=== PATIENT | female | born 1935 | race Caucasian/White ===

== ENCOUNTER → 2020-05-27 11:57 | Outpatient (BNVA) | payer MEDICARE, SELFPAY | PROVIDERS: Visit Provider Family Medicine | DX: N30.01 Acute cystitis with hematuria (principal) | CPT/HCPCS: 81003 ==

== ENCOUNTER 2020-07-25 11:17 | Emergency (ER) | payer MEDICARE, SELFPAY ==
--- NOTE | 2020-07-25 11:18 | CT_ITS ---
WS: [id number] CT HEAD TECHNIQUE: Noncontrast CT of the head obtained from the skullbase to the vertex. CLINICAL INFORMATION: head injury COMPARISON: None. DLP: 807.[address] scans at [facility] use at least one of these dose optimization techniques: automat ed exposure control; mA and/or kV adjustment per patient size (includes targeted exams where dose is matched to clinical indication); or iterative reconstruction. FINDINGS: No evidence of intracranial hemorrhage or mass effect. Ventricular system and basal cisterns are almaraz nt. Mild small vessel changes with mild parenchymal volume loss. No extra-axial fluid collections. No evidence of mass or mass effect. Normal mercado-white differentiation. Dystrophic calcification along t he falx. Paranasal sinuses and mastoid air cells are well aerated. Mild mucosal thickening right mastoid tip. . Soft tissue edema dorsal right scalp. No visualized fractures. CT/CT head wo con* [id number] IMPRESSION: 1. No evidence of intracranial hemorrhage or mass effect. 2. Soft tissue edema dorsal scalp. No acute fractures. 3. Mild small vessel changes with mild parenchymal volume loss. 4. No acute intracranial findings.
[2020-07-25 11:53] VITALS: BP 99/64; PULSE 87; RESP 14; TEMP 36.7; O2SAT 96; BMI 18.3
--- NOTE | 2020-07-25 12:33 | XRR_ITS ---
PROCEDURE INFORMATION: Exam: XR Chest, 1 View Exam date and time: 07/25/2020 12:40 PM Age: 85 years old Clinical indication: Cough and dyspnea and shortness of breath; Additional info: Dyspnea/cough TECHNIQUE: Imaging protocol: XR of the chest Views: 1 view. COMPARISON: No relevant prior studies available. FINDINGS: Lungs: No acute pneumonia or edema. Pleural spaces: There are small bilateral pleural effusions. No pneumothorax. Heart/Mediastinum: Unremarkable. No cardiomegaly. Bones/joints: Unremarkable. XR/XR chest 1V portable [id number] IMPRESSION: There are small bilateral pleural effusions.
--- NOTE | 2020-07-25 12:34 | ECG_ITS ---
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1935 Requested By: Dae Bellamy Order Number: [id number] Reading MD: ALLISON NASH Measurements Intervals [place] Rate: 67 P: [place]: QRS: 77 QRSD: 93 T: 52 QT: 407 QTc: 431 Interpretive Statements ATRIAL FIBRILLATION NONSPECIFIC ST & T-WAVE ABNORMALITY ABNORMAL RHYTHM ECG Compared to ECG 07/25/2020 12:52:48 No significant changes Electronically Signed On 07-25-2020 19:29:08 [employer] by ALLISON NASH [email or web address] Groupmonroe regional hospitalAllDigitalmetrohealth [facility].Tattva/store/NU/[email or web address]/[id number] f
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
[2020-07-25 13:19] LABS: ABG PCO2 44.3 mmHg (35-45); Alveolar-Arterial Oxygen Gradi 4.3 mmHg (5-10); Arterial Blood Gas Hematocrit 33.8 % (37-47); Base Excess ABG 18.3 mmol/L (-2.0-2.0); Blood Gas Allen Test Pos; Blood Gas Sample Site Radial, left; Blood Gas Sample Type Arterial; Carboxyhemoglobin 1.3 %THgb (0.4-20.1); HCO3 ABG 42.1 mmol/L (22-26); HGB O2 Sat 93.3 % (95-100); Ionized Calcium Level - ABG 1.1 mmol/L (1.1-1.4); Methemoglobin 0.2 % (0.4-1.5); Oxygen Device ROOM AIR; Oxygen Saturation ABG 94.8; PO2 ABG 62.2 mmHg (80.0-100.0); Potassium Level - ABG 2.3 mmol/L (3.5-5.0)
[2020-07-25 13:26] VITALS: BP 97/60; PULSE 77; RESP 21; O2SAT 91
[2020-07-25 14:15] LABS: Basophils % 0.2 %; Eosinophils % 0.4 %; Hemoglobin 9.1 g/dL (11.5-15.3); Lymphocytes # 1.5 10^3/uL (0.8-4.8); Lymphocytes % 18.4 %; Mean Corpuscular HGB Conc 32.5 g/dL (30.0-36.0); Mean Corpuscular Hemoglobin 29.6 pg (28.0-34.0); Mean Corpuscular Volume 91.2 fL (81-99); Monocytes # 0.7 10^3/uL (0.2-0.9); Monocytes % 7.8 %; Neutrophils % 73.1 %; Nucleated Red Blood Cells % 0 %; Platelet Count 226 10^3/cmm (130-400); Red Blood Count 3.07 10^6/uL (4.1-5.3); Red Cell Distribution Width 15.6 % (12.1-15.1); White Blood Count 8.4 10^3/uL (4.0-10.0)
[2020-07-25 14:18] VITALS: BP 115/71; PULSE 75; RESP 18; O2SAT 91
[2020-07-25 14:19] LABS: Bilirubin Urine Neg (Negative); Blood Urine 3+ (Negative); Glucose Urine UA Norm (Normal); Ketones Urine Negative (Negative); Nitrate Urine Negative (Negative); Protein Urine Trace (Negative); Specific Gravity, Urine 1.015 (1.005-1.030); Urine Appearance SL Hazy (CLEAR); Urine Color Yellow (Yellow); pH Urine 5 (5-7)
[2020-07-25 14:20] LABS: Add Urine Culture? No; Add Urine Microscopic? YES; Bacteria Urine 1+ /hpf; Leukocyte Esterase Urine Negative (Negative); Transitional Epi Cells Urine 0-4 /hpf; Urobilinogen Urine Norm (Negative); WBC Urine 0-4 /hpf (0-5)
--- NOTE | 2020-07-25 14:26 | CT_ITS ---
WS: [id number] CT ABDOMEN AND PELVIS NONCONTRAST HISTORY: flank pain TECHNIQUE: Imaging performed through the abdomen and pelvis. Coronal and sagittal reformats are submi tted. All CT scans at [facility] use at least one of these dose optimization techniques: automated exposure control; mA and/or kV adjustment per patient size (includes targeted exams where d ose is matched to clinical indication); or iterative reconstruction. DLP: 521.38 mGy.cm COMPARISON: None available. Lower thorax: Small bilateral simple pleural effusions. Mild compressive atelectasis at the lung base s. Mild atherosclerosis in the distal thoracic aorta. Heart size is slightly enlarged. Liver: Normal size liver. No mass or bile duct dilatation. Gallbladder: Gallbladder is slightly contracted. Pancreas: Marked atrophy of the pancreas. Cystic nodule in the pancreatic body measures 7 mm. Spleen: Normal. Adrenal glands: Mild hyperplasia LEFT adrenal gland. RIGHT is negative. Right kidney: Mild perinephric stranding. No obstruction. Left kidney: Parapelvic cyst upper pole. No hydronephrosis or obstruction. Aorta: Moderate to severe atherosclerosis abdominal aorta. No aneurysm. Atherosclerosis continues int o the common iliac arteries. Diffuse moderate mesenteric edema. There is a small amount of free fluid present within the peritonea l cavity. GI tract: Diffuse constipation. No obstructive pattern. Abdominal wall: Negative. No hernia. Pelvis: Urinary bladder is well distended. Small amount of air in urinary bladder may be from a recen t catheterization. Small amount of free fluid in the pelvis. Uterus is atrophic as expected. Osseous structures: L3 retrolisthesis by [address]/CT kidney stone [id number] IMPRESSION: 1. Small bilateral pleural effusions. 2. Small amount of ascites with soft tissue anasarca. 3. Atherosclerosis aorta. 4. Indeterminate cystic mass in the pancreatic body measures 7 mm. IPMN versu s pancreatic cystic nodule. 5. No renal obstruction or calcifications identified.
--- NOTE | 2020-07-25 14:34 | ECG_ITS ---
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
[2020-07-25 14:46] LABS: Alanine Aminotransferase 8 U/L (0-33); Alkaline Phosphatase 62 IU/L (35-105); Anion Gap 11.6 (5-19); Aspartate Amino Transferase 14 U/L (0-32); Blood Urea Nitrogen 33 mg/dL (8-23); Calcium 7.9 mg/dL (8.5-10.5); Carbon Dioxide 39 mmol/L (22-29); Chloride 85 mmol/L (98-107); Creatine Phosphokinase 21 U/L (26-192); Globulin 2.9 g/dL (1.3-4.6); Glucose 103 mg/dL (65-115); Lipase 98 U/L (13-60); Osmolality Calculated 284 mOsm/kg (285-295); Sodium 133 mmol/L (136-145); Total Bilirubin 0.4 mg/dL (0.15-1.2); Total Protein 5.9 g/dL (6.6-8.7); Troponin(5th) Baseline 44 ng/L (0-10)
[2020-07-25 14:47] LABS: Lactic Sepsis W/Reflex 1.3 mmol/L (0.5-2.2)
[2020-07-25 14:50] LABS: Potassium 2.6 mmol/L (3.5-5.1)
[2020-07-25] MEDS: potassium chloride oral liq 20 mEq/15 mL UDC 40 MEQ PO (16:07)
[2020-07-25 16:31] VITALS: BP 114/68; PULSE 84; RESP 15; O2SAT 96
[2020-07-25 16:52] LABS: Troponin 5 2HR 41.61 ng/L (0-10)
[2020-07-25 16:54] LABS: Troponin 5 2HR Delta -2.39 ABS# (0-10)
[2020-07-30 14:03] LABS: ABG PH Result 7.59 (7.35-7.45)
== END 2020-07-25 16:31 | disposition home or self-care (01) ==
PROVIDERS: Emergency Provider Family Medicine; PCP Family Medicine
DX: D64.9 Anemia, unspecified (principal); E87.6 Hypokalemia
CPT/HCPCS: 12345; 36415; 36600; 70450; 71045; 74176; 80051; 80053; 81001; 82330; 82550; 82805; 83605; 83690; 84484; 85025; 93005; 99282; 99283

== ENCOUNTER 2020-08-10 19:55 | Emergency (ER) | payer MEDICARE, SELFPAY ==
[2020-08-10] VITALS (7 sets, daily range): BP systolic 109–137; BP diastolic 62–99; PULSE 96–107; RESP 14–21; TEMP 36.7–36.8; O2SAT 96–99; BMI 18.3
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
[2020-08-10 20:35] LABS: Basophils % 0.4 %; Eosinophils # 0.1 10^3/uL (0.0-0.8); Hematocrit 24.7 % (37.0-47.0); Hemoglobin 7.8 g/dL (11.5-15.3); Lymphocytes # 1.6 10^3/uL (0.8-4.8); Lymphocytes % 16.2 %; Mean Corpuscular HGB Conc 31.6 g/dL (30.0-36.0); Mean Corpuscular Hemoglobin 30.1 pg (28.0-34.0); Mean Corpuscular Volume 95.4 fL (81-99); Monocytes # 0.7 10^3/uL (0.2-0.9); Monocytes % 7.4 %; Neutrophils # 7.32 10^3/uL (1.8-7.7); Neutrophils % 74.7 %; Nucleated Red Blood Cells % 0 %; Platelet Count 299 10^3/cmm (130-400); Red Blood Count 2.59 10^6/uL (4.1-5.3); White Blood Count 9.8 10^3/uL (4.0-10.0)
[2020-08-10 20:49] LABS: INR 0.98 (0.8-1.2)
--- NOTE | 2020-08-10 21:08 | ECG_ITS ---
[facility] Test Date: 2020-08-10 Pat Name: Marianne Collins Department: Room: Gender: Female Boiler Operator: : 1935 Requested By: Ree Sorto Order Number: [id number] Krystyna MD: Magdy Aiken M.D. Measurements Intervals [place] Rate: 98 P: 93 TN: 204 QRS: 78 QRSD: 85 T: 61 QT: 337 QTc: 431 Interpretive Statements SINUS RHYTHM WITH OCCASIONAL SUPRAVENTRICULAR PREMATURE COMPLEXES Compared to ECG 07/25/2020 14:51:57 Atrial fibrillation no longer present T-wave abnormality no longer present Electronically Signed On 08-11-2020 20:01:25 ELECTRICAL PROSPECTING OPERATOR by Magdy Aiekn M.D. [id number]
[2020-08-10 21:16] LABS: Anion Gap 10.6 (5-19); Blood Urea Nitrogen 20 mg/dL (8-23); Calcium 7.9 mg/dL (8.5-10.5); Carbon Dioxide 27 mmol/L (22-29); Chloride 98 mmol/L (98-107); Glucose 101 mg/dL (65-115); Osmolality Calculated 277 mOsm/kg (285-295); Potassium 3.6 mmol/L (3.5-5.1); Sodium 132 mmol/L (136-145)
[2020-08-11] VITALS: BP 112/67; PULSE 94; RESP 21; O2SAT 96
[2020-08-11 00:37] VITALS: BP 112/67; PULSE 96; RESP 22; TEMP 36.8; O2SAT 97
[2020-08-11 01:00] VITALS: BP 107/61; PULSE 96; RESP 12; O2SAT 97
[2020-08-11 01:34] VITALS: BP 122/72; PULSE 18; RESP 93; TEMP 36.8; O2SAT 96
== END 2020-08-11 01:34 | disposition home or self-care (01) ==
PROVIDERS: Emergency Provider Emergency Medicine; PCP Family Medicine
DX: D64.9 Anemia, unspecified (principal)
CPT/HCPCS: 36415; 36430; 80048; 85025; 85610; 86850; 86900; 86920; 93005; 99284; P9016

== ENCOUNTER 2020-09-04 12:23 | Emergency (ER) | payer MEDICARE, SELFPAY ==
[2020-09-04 12:23] VITALS: BP 159/82; PULSE 64; RESP 24; TEMP 36.6; BMI 23.3
--- NOTE | 2020-09-04 12:32 | CTR_ITS ---
PROCEDURE INFORMATION: Exam: CT Lumbar Spine Without Contrast Exam date and time: 09/04/2020 12:43 PM Age: 85 years old Clinical indication: Injury or trauma; Fall; Blunt trauma (contusions or hematomas); Additional info: Fall, polytrauma TECHNIQUE: Imaging protocol: Computed tomography images of the lumbar spine without contrast. Radiation optimization: All CT scans at this facility use at least one of these dose optimization techniques: automated exposure control; mA and/or kV adjustment per patient size (includes targeted exams where dose is matched to clinical indication); or iterative reconstruction. COMPARISON: No relevant prior studies available. RADIATION DOSE METRICS: Total DLP (mGy-cm): 1615.16 FINDINGS: Vertebrae: There is a mild lateral curvature of the lumbar spine with the convexity to the right. There are degenerative changes throughout the visualized spine including marginal osteophyte formations, endplate degenerative changes, and facet arthropathy. Minimal grade 1 retrolisthesis of L3 on L4. L1-L2: No significant disc protrusion. No severe spinal canal stenosis. No significant neural foraminal narrowing. L2-L3: No significant disc protrusion. No spinal canal stenosis. No neural foraminal narrowing. L3-L4: No significant disc protrusion. No severe spinal canal stenosis. No significant neural foraminal narrowing. L4-L5: There is a disc bulge and ligamentum flavum hypertrophy contributing to mild to moderate canal stenosis. There is moderate narrowing of the right neural foramen and mild narrowing of the left neural foramen. L5-S1: There is a disc bulge and posterior osteophytes. No significant canal or neural foramina stenosis. Lungs: There are bilateral pleural effusions with adjacent atelectasis and or pneumonia. Intraperitoneal space: There is free fluid in the visualized abdomen surrounding the liver and along the right paracolic gutter. Vasculature: There is scattered calcified plaque in the aorta and iliac arteries. Soft tissues: Unremarkable. Other findings: Multilevel disc space narrowing. CT/CT lumbar spine wo con* [id number] IMPRESSION: 1. There are degenerative changes in the lumbar spine as described above. No evidence for acute fracture. 2. There is free fluid in the visualized abdomen/pelvis. This could be more optimally evaluated by CT scan abdomen/pelvis if not already performed. 3. Bilateral pleural effusions with adjacent compressive atelectasis or pneumonia. Radiation Dose CTDIVOL = (mGy): DLP = 1615.16 (mGy-cm)
--- NOTE | 2020-09-04 12:32 | CTR_ITS ---
PROCEDURE INFORMATION: Exam: CT Thoracic Spine Without Contrast Exam date and time: 09/04/2020 12:43 PM Age: 85 years old Clinical indication: Injury or trauma; Fall; Blunt trauma (contusions or hematomas); Additional info: Fall poly trauma TECHNIQUE: Imaging protocol: Computed tomography images of the thoracic spine without contrast. Radiation optimization: All CT scans at this facility use at least one of these dose optimization techniques: automated exposure control; mA and/or kV adjustment per patient size (includes targeted exams where dose is matched to clinical indication); or iterative reconstruction. COMPARISON: No relevant prior studies available. RADIATION DOSE METRICS: Total DLP (mGy-cm): 854.95 FINDINGS: Vertebrae: There are minimal thoracic scoliotic curvatures with a levoscoliosis of the upper thoracic spine in a dextroscoliosis of the midthoracic spine. There is a mild anterior compression deformity of the T1 superior endplate which has a chronic appearance. No associated soft tissue changes are seen. Discs/Spinal canal/Neural foramina: There are degenerative changes throughout the visualized spine including marginal osteophyte formations, degenerative Schmorl's nodes, and facet arthropathy. Multilevel disc space narrowing. Soft tissues: See Vertebrae finding. Lungs: Bilateral pulmonary ground-glass opacities. There are large bilateral pleural effusions.Multivessel atherosclerotic disease which involves the coronary arteries. CT/CT thoracic spin wo con* [id number] IMPRESSION: 1. There is a mild anterior compression deformity of the T1 superior endplate which has a chronic appearance. 2. There are degenerative changes in the visualized spine as described above. No evidence for acute fracture. 3. Bilateral pulmonary ground-glass opacities are nonspecific and can be seen with pulmonary edema, pneumonitis, and or pneumonia. There are bilateral pleural effusions. Radiation Dose CTDIVOL = (mGy): DLP = 854.95 (mGy-cm)
--- NOTE | 2020-09-04 12:32 | CTR_ITS ---
PROCEDURE INFORMATION: Exam: CT Head Without Contrast Exam date and time: 09/04/2020 12:43 PM Age: 85 years old Clinical indication: Injury or trauma; Fall; Blunt trauma (contusions or hematomas); With loss of consciousness; Not specified; Injury date: Today; Additional info: Fall, polytrauma TECHNIQUE: Imaging protocol: Computed tomography of the head without contrast. Radiation optimization: All CT scans at this facility use at least one of these dose optimization techniques: automated exposure control; mA and/or kV adjustment per patient size (includes targeted exams where dose is matched to clinical indication); or iterative reconstruction. COMPARISON: CT head wo con* [id number] 07/25/2020 11:45 AM RADIATION DOSE METRICS: Total DLP (mGy-cm): 1120.52 FINDINGS: Brain: Minimal periventricular and subcortical white matter low densities are present which at this age likely represent microvascular ischemic change. Mild generalized cerebral atrophy, age appropriate. Cerebral ventricles: No ventriculomegaly. Bones/joints: Hyperostosis of the calvarium. Paranasal sinuses: Visualized sinuses are unremarkable. No fluid levels. Mastoid air cells: There is fluid and/or mucosal thickening in several right mastoid air cells. Soft tissues: Unremarkable. CT/CT head wo con* [id number] IMPRESSION: There are senescent changes of the brain as described above. No evidence for large acute ischemic infarction or acute intracranial injury. Radiation Dose CTDIVOL = (mGy): DLP = 1120.52 (mGy-cm)
--- NOTE | 2020-09-04 12:32 | ECG_ITS ---
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 Measurements Intervals [place] Rate: 77 P: 93 CA: 164 QRS: 83 QRSD: 85 T: 74 QT: 387 QTc: 439 Interpretive Statements SINUS RHYTHM Compared to ECG 08/10/2020 21:29:29 No significant changes Electronically Signed On 09-04-2020 20:16:10 CDT by Myranda Muhammad M.D. [id number] f
--- NOTE | 2020-09-04 12:32 | CTR_ITS ---
PROCEDURE INFORMATION: Exam: CT Cervical Spine Without Contrast Exam date and time: 09/04/2020 12:43 PM Age: 85 years old Clinical indication: Injury or trauma; Fall; Blunt trauma; Injury date: Today; Additional info: Fall, polytrauma TECHNIQUE: Imaging protocol: Computed tomography images of the cervical spine without contrast. Radiation optimization: All CT scans at this facility use at least one of these dose optimization techniques: automated exposure control; mA and/or kV adjustment per patient size (includes targeted exams where dose is matched to clinical indication); or iterative reconstruction. COMPARISON: No relevant prior studies available. RADIATION DOSE METRICS: Total DLP (mGy-cm): 309.37 FINDINGS: Bones/joints: There is a mild anterior compression deformity of the T1 superior endplate which has a chronic appearance. There are no associated soft tissue changes. Discs/Spinal canal/Neural foramina: There are degenerative changes throughout the visualized spine including marginal osteophyte formations, endplate degenerative changes, and facet arthropathy. Multilevel disc space narrowing. There are multilevel broad-based disc osteophyte complexes which indent the anterior thecal sac and result in varying degrees of bilateral neuroforamina narrowing. A Mastoid air cells: There is fluid and/or mucosal thickening in several right mastoid air cells. Lungs: There are ground-glass opacities at the lung apices and bilateral pleural effusions. Soft tissues: There are benign-appearing soft tissue calcifications. CT/CT cervical spin wo con* [id number] IMPRESSION: 1. There is a mild anterior compression deformity of the T1 superior endplate which has a chronic appearance. No acute fracture is seen. 2. There are degenerative changes in the visualized spine as described above. No evidence for acute fracture. 3. There are ground-glass opacities at the lung apices. This is a nonspecific finding and can be seen with pulmonary edema, pneumonitis, and or pneumonia. 4. Bilateral pleural effusions. Radiation Dose CTDIVOL = (mGy): DLP = 309.37 (mGy-cm)
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
[2020-09-04 13:39] VITALS: BP 144/75; RESP 24; O2SAT 94
[2020-09-04 13:51] LABS: Basophils % 0.3 %; Eosinophils # 0.1 10^3/uL (0.0-0.8); Eosinophils % 0.7 %; Hematocrit 29.3 % (37.0-47.0); Hemoglobin 9.1 g/dL (11.5-15.3); Lymphocytes % 7.4 %; Mean Corpuscular HGB Conc 31.1 g/dL (30.0-36.0); Mean Corpuscular Hemoglobin 31.2 pg (28.0-34.0); Mean Corpuscular Volume 100.3 fL (81-99); Mean Platelet Volume 10.5 fL (7.4-10.4); Monocytes # 0.8 10^3/uL (0.2-0.9); Monocytes % 5.7 %; Neutrophils % 85.4 %; Nucleated Red Blood Cells % 0 %; Platelet Count 371 10^3/cmm (130-400); Red Blood Count 2.92 10^6/uL (4.1-5.3); Red Cell Distribution Width 15.1 % (12.1-15.1); White Blood Count 13.9 10^3/uL (4.0-10.0)
[2020-09-04 14:00] VITALS: BP 142/79; PULSE 72; RESP 16; O2SAT 95
[2020-09-04 14:23] LABS: Alanine Aminotransferase 10 U/L (0-33); Albumin Level 2.6 g/dL (3.5-5.2); Alkaline Phosphatase 85 IU/L (35-105); Anion Gap 16.9 (5-19); Aspartate Amino Transferase 14 U/L (0-32); Blood Urea Nitrogen 32 mg/dL (8-23); Calcium 8.2 mg/dL (8.5-10.5); Carbon Dioxide 22 mmol/L (22-29); Chloride 99 mmol/L (98-107); Glucose 132 mg/dL (65-115); Magnesium 1.8 mg/dL (1.7-2.3); Osmolality Calculated 287 mOsm/kg (285-295); Potassium 3.9 mmol/L (3.5-5.1); Sodium 134 mmol/L (136-145); Total Bilirubin 0.2 mg/dL (0.15-1.2); Total Protein 6.6 g/dL (6.6-8.7)
[2020-09-04 14:37] LABS: INR 1.06 (0.8-1.2)
[2020-09-04 15:00] VITALS: BP 146/79; RESP 22; O2SAT 94
[2020-09-04] MEDS: lactated ringers 500 ML 999 ML IV (15:06)
[2020-09-04 17:04] LABS: Urine Appearance Clear (CLEAR); Urine Color Straw (Yellow); pH Urine 5 (5-7)
[2020-09-04 17:05] LABS: Add Urine Microscopic? YES; Bilirubin Urine Neg (Negative); Blood Urine 3+ (Negative); Glucose Urine UA Norm (Normal); Ketones Urine Negative (Negative); Leukocyte Esterase Urine Negative (Negative); Nitrate Urine Negative (Negative); Protein Urine 1+ (Negative); Urobilinogen Urine Norm (Negative)
[2020-09-04 17:06] LABS: Add Urine Culture? Yes; Bacteria Urine TRACE /hpf; Mucus Urine TRACE /hpf; RBC Urine 25-40 /hpf (0-2); Squamous Epithelial Cell Urine RARE /hpf (0-5); WBC Urine 0-4 /hpf (0-5)
[2020-09-04 18:27] VITALS: BP 142/80; PULSE 74; RESP 16; O2SAT 98
[2020-09-04 18:30] VITALS: BP 142/80; PULSE 74; RESP 16; O2SAT 98
== END 2020-09-04 18:30 | disposition home or self-care (01) ==
PROVIDERS: Emergency Provider Family Medicine; PCP Family Medicine
DX: S00.03XA Contusion of scalp, initial encounter (principal); S06.0X0A Concussion without loss of consciousness, initial encounter; N17.9 Acute kidney failure, unspecified; W19.XXXA Unspecified fall, initial encounter; Z79.899 Other long term (current) drug therapy
CPT/HCPCS: 36415; 70450; 72125; 72128; 72131; 80053; 81001; 83735; 85025; 85610; 87086; 93005; 99284; 99291

== ENCOUNTER 2020-09-05 14:07 | Inpatient (IN) | payer MEDICARE, SELFPAY ==
[2020-09-05] VITALS (12 sets, daily range): BP systolic 109–142; BP diastolic 60–80; PULSE 73–98; RESP 12–24; TEMP 36.4–36.5; O2SAT 91–94
--- NOTE | 2020-09-05 14:17 | XR_ITS ---
WS: [id number] PORTABLE CHEST HISTORY: altered mental status COMPARISON: 07/25/2020 Lung volumes are decreased. Haziness and mild pulmonary edema. Small bilateral pleural effusions have slightly increased in size since 07/25/2020. Increasing compressive atelectasis at the lung bases. Cardiac size: Mildly enlarged cardiac silhouette. Mediastinum/Aorta: Mild atherosclerosis aorta. No osseous abnormality seen. XR/XR chest 1V portable [id number] IMPRESSION: 1. Development of mild pulmonary edema. 2. Increasing but small bilateral pleural effusions and compressive atelectasi s.
--- NOTE | 2020-09-05 14:21 | ECG_ITS ---
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 Measurements Intervals [place] Rate: 94 P: [place]: QRS: 64 QRSD: 83 T: 38 QT: 362 QTc: 455 Interpretive Statements Possible atrial fibrillation. Because of the heavy artifact, the study need to be repeated LOW QRS VOLTAGE IN PRECORDIAL LEADS [QRS DEFLECTION < 1.0 mV IN CHEST LEADS] MODERATE ST DEPRESSION [0.05+ mV ST DEPRESSION] Compared to ECG 09/04/2020 13:29:52 Low QRS voltage now present ST (T wave) deviation now present Sinus rhythm no longer present Electronically Signed On 09-06-2020 20:13:54 CDT by Magdy Aiken M.D. [id number]
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
[2020-09-05 15:00] LABS: Glucose Point of Care 197 mg/dL (70-110)
[2020-09-05 15:01] LABS: Basophils % 0.2 %; Eosinophils # 0.1 10^3/uL (0.0-0.8); Eosinophils % 0.5 %; Hematocrit 27.7 % (37.0-47.0); Hemoglobin 8.9 g/dL (11.5-15.3); Lymphocytes # 1.5 10^3/uL (0.8-4.8); Lymphocytes % 11.4 %; Mean Corpuscular HGB Conc 32.1 g/dL (30.0-36.0); Mean Corpuscular Hemoglobin 30.6 pg (28.0-34.0); Mean Corpuscular Volume 95.2 fL (81-99); Mean Platelet Volume 10.7 fL (7.4-10.4); Monocytes # 0.8 10^3/uL (0.2-0.9); Monocytes % 6.1 %; Neutrophils # 10.63 10^3/uL (1.8-7.7); Neutrophils % 81.3 %; Nucleated Red Blood Cells % 0 %; Platelet Count 412 10^3/cmm (130-400); Red Blood Count 2.91 10^6/uL (4.1-5.3); Red Cell Distribution Width 14.9 % (12.1-15.1); White Blood Count 13.1 10^3/uL (4.0-10.0)
[2020-09-05 15:11] LABS: Bilirubin Urine Neg (Negative); Blood Urine 3+ (Negative); Glucose Urine UA Norm (Normal); Ketones Urine Negative (Negative); Nitrate Urine Negative (Negative); Protein Urine Trace (Negative); Specific Gravity, Urine 1.015 (1.005-1.030); Urine Appearance Clear (CLEAR); Urine Color Yellow (Yellow); pH Urine 5 (5-7)
[2020-09-05 15:12] LABS: Add Urine Culture? No; Add Urine Microscopic? YES; Bacteria Urine TRACE /hpf; Leukocyte Esterase Urine Negative (Negative); Urobilinogen Urine Norm (Negative)
[2020-09-05 15:14] LABS: Troponin(5th) Baseline 44 ng/L (0-10)
[2020-09-05 15:23] LABS: Alanine Aminotransferase 9 U/L (0-33); Albumin Level 2.7 g/dL (3.5-5.2); Alkaline Phosphatase 79 IU/L (35-105); Anion Gap 17.8 (5-19); Aspartate Amino Transferase 11 U/L (0-32); Blood Urea Nitrogen 30 mg/dL (8-23); Calcium 8.3 mg/dL (8.5-10.5); Carbon Dioxide 23 mmol/L (22-29); Chloride 100 mmol/L (98-107); Globulin 3.3 g/dL (1.3-4.6); Glucose 190 mg/dL (65-115); NT Pro B Type Natriuretic Pept 16428 pg/mL (0-450); Osmolality Calculated 295 mOsm/kg (285-295); Potassium 3.8 mmol/L (3.5-5.1); Sodium 137 mmol/L (136-145); Total Bilirubin 0.3 mg/dL (0.15-1.2)
--- NOTE | 2020-09-05 16:21 | ECG_ITS ---
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 Measurements Intervals Page Rate: 83 P: 82 ID: [id number] QRS: 63 QRSD: 82 T: 63 QT: 366 QTc: 431 Interpretive Statements SINUS RHYTHM WITH OCCASIONAL SUPRAVENTRICULAR PREMATURE COMPLEXES Compared to ECG 09/05/2020 14:29:23 Atrial fibrillation no longer present ST (T wave) deviation no longer present Electronically Signed On 09-05-2020 19:15:17 CDT by Myranda Muhammad M.D. [id number]
[2020-09-05] MEDS: FUROsemide 10 mg/mL SDV 4mL 40 MG IVP (16:45)
[2020-09-05] MEDS: acetaminophen 325 mg Tablet 650 MG PO (16:46)
--- NOTE | 2020-09-05 16:52 | CTR_ITS ---
PROCEDURE INFORMATION: Exam: CT Head Without Contrast Exam date and time: 09/05/2020 5:20 PM Age: 85 years old Clinical indication: Altered mental status/memory loss; Additional info: AMS TECHNIQUE: Imaging protocol: Computed tomography of the head without contrast. Radiation optimization: All CT scans at this facility use at least one of these dose optimization techniques: automated exposure control; mA and/or kV adjustment per patient size (includes targeted exams where dose is matched to clinical indication); or iterative reconstruction. COMPARISON: CT head wo con* [id number] 09/04/2020 12:58 PM RADIATION DOSE METRICS: Total DLP (mGy-cm): 1044.84 FINDINGS: Brain: No evidence of acute infarct. No mass or mass effect. No intra axial hemorrhage. No extra axial fluid collection or hemorrhage. Scattered white matter hypodensities likely from chronic microvascular ischemic disease. Global brain volume loss, likely age related. Cerebral ventricles: Symmetric and without enlargement. Bones/joints: No acute fracture. Paranasal sinuses: Visualized sinuses are well aerated. Mastoid air cells: Visualized mastoid air cells are well aerated. Soft tissues: No concerning abnormalities. CT/CT head wo con* [id number] IMPRESSION: 1. Positioning mildly limits exam. 2. Given limitation, no acute intracranial abnormality. Radiation Dose CTDIVOL = (mGy): DLP = 1044.84 (mGy-cm)
[2020-09-05 17:04] LABS: Creatine Phosphokinase 15 U/L (26-192)
[2020-09-05 17:08] LABS: Troponin 5 2HR 44.77 ng/L (0-10); Troponin 5 2HR Delta 0.77 ABS# (0-10)
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
--- NOTE | 2020-09-05 20:21 | ECG_ITS ---
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 Measurements Intervals [place] Rate: 70 P: 95 IA: 161 QRS: 59 QRSD: 85 T: 34 QT: 408 QTc: 442 Interpretive Statements SINUS RHYTHM WITH OCCASIONAL SUPRAVENTRICULAR PREMATURE COMPLEXES Compared to ECG 09/05/2020 16:30:25 No significant changes Electronically Signed On 09-09-2020 18:22:53 CDT by Myranda Muhammad M.D. [email or web address] [email or web address]/[id number]
[2020-09-05] MEDS: cefTRIAXone 1,000 MG in sodium chloride 0.9% (plus) 50 ML 100 MG IV (20:52)
[2020-09-05] MEDS: heparin 5,000 unit/mL INJ 1 mL 5000 UNIT SUBCUT (20:52)
[2020-09-05] MEDS: famotidine 20 mg/2 mL INJ IVP (20:57)
[2020-09-05 21:26] LABS: Troponin 5 6HR 53.39 ng/L (0-10); Troponin 5 6HR Delta 9.39 ng/L (0-12)
[2020-09-06] VITALS (12 sets, daily range): BP systolic 102–161; BP diastolic 61–88; PULSE 76–99; RESP 16–18; TEMP 36.4–37.2; O2SAT 89–97
[2020-09-06 06:22] LABS: Basophils % 0.2 %; Eosinophils # 0.2 10^3/uL (0.0-0.8); Eosinophils % 2.2 %; Hematocrit 26.7 % (37.0-47.0); Hemoglobin 8.5 g/dL (11.5-15.3); Lymphocytes # 1.4 10^3/uL (0.8-4.8); Lymphocytes % 12.9 %; Mean Corpuscular HGB Conc 31.8 g/dL (30.0-36.0); Mean Corpuscular Hemoglobin 29.9 pg (28.0-34.0); Mean Platelet Volume 10.8 fL (7.4-10.4); Monocytes # 0.8 10^3/uL (0.2-0.9); Monocytes % 6.8 %; Neutrophils # 8.48 10^3/uL (1.8-7.7); Neutrophils % 77.4 %; Nucleated Red Blood Cells % 0 %; Platelet Count 392 10^3/cmm (130-400); Red Blood Count 2.84 10^6/uL (4.1-5.3); Red Cell Distribution Width 14.8 % (12.1-15.1)
[2020-09-06 06:34] LABS: Ammonia 23 umol/L (11-51)
[2020-09-06 06:49] LABS: Alanine Aminotransferase 8 U/L (0-33); Albumin Level 2.4 g/dL (3.5-5.2); Alkaline Phosphatase 72 IU/L (35-105); Anion Gap 14.1 (5-19); Aspartate Amino Transferase 10 U/L (0-32); Blood Urea Nitrogen 28 mg/dL (8-23); Carbon Dioxide 25 mmol/L (22-29); Chloride 101 mmol/L (98-107); Globulin 3.7 g/dL (1.3-4.6); Glucose 90 mg/dL (65-115); Magnesium 1.7 mg/dL (1.7-2.3); Osmolality Calculated 289 mOsm/kg (285-295); Phosphorus 3.5 mg/dL (2.5-4.5); Potassium 3.1 mmol/L (3.5-5.1); Sodium 137 mmol/L (136-145); Thyroid Stimulating Hormone 5.36 uIU/mL (0.27-4.20); Total Bilirubin 0.3 mg/dL (0.15-1.2); Total Protein 6.1 g/dL (6.6-8.7)
--- NOTE | 2020-09-06 07:33 | PC.NURSE ---
AM ASSESSMENT AM ASSESSMENT PER THIS NURSE - PT PLEASANT AND COOPERATIVE TO ASSESSMENT - ABLE TO STATE NAME ONLY - UNAWARE OF DATE,TIME, PLACE OR SITUATION - SEE WOUND ASSESSMENT FOR HEAD LAC DETAILS AND LEFT LOWER LEG WOUND DETAILS - 1:1 SITTER REMAINS AT SIDE - WILL REVIEW ORDERS, PLAN OF CARE AND MONITOR PT
[2020-09-06] MEDS: heparin 5,000 unit/mL INJ 1 mL 5000 UNIT SUBCUT (08:11)
[2020-09-06] MEDS: famotidine 20 mg/2 mL INJ IVP (08:12)
[2020-09-06] MEDS: ipratropium-albuterol 3 mL Neb INHALATION (08:41)
--- NOTE | 2020-09-06 09:12 | XRR_ITS ---
PROCEDURE INFORMATION: Exam: XR Bilateral Hips Exam date and time: 09/06/2020 9:15 AM Age: 85 years old Clinical indication: Injury or trauma; Fall; Blunt trauma (contusions or hematomas); Bilateral; Hip; Injury date: 09/05/20; Patient HX: PT unable to provide history TECHNIQUE: Imaging protocol: XR bilateral hips. Views: 2 views of hips with pelvis when performed. COMPARISON: CT kidney stone [id number] 07/25/2020 3:47 PM FINDINGS: Bones/joints: Degenerative changes are present in the right hip joint with osteophyte formation on the femoral head and mild joint space narrowing. No significant degenerative changes are seen in the left hip. No fracture or other acute abnormalities are present. Soft tissues: Unremarkable. XR/XR hip BI 3-4V wo/w pel [id number] IMPRESSION: 1. 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 2. Normal left hip.
--- NOTE | 2020-09-06 09:12 | XRR_ITS ---
PROCEDURE INFORMATION: Exam: XR Ribs Exam date and time: 09/06/2020 9:15 AM Age: 85 years old Clinical indication: Injury or trauma; Fall; Rib area, bilateral; Blunt trauma; Injury date: 09/05/20; Patient HX: PT unable to provide history; Additional info: Fall, chest pain TECHNIQUE: Imaging protocol: XR of the ribs. Views: 3 views. Bilateral ribs. COMPARISON: CR XR chest 1V portable [id number] 09/05/2020 2:43 PM FINDINGS: Bones/joints: The ribs are intact with no fracture. Lungs: There are diffuse bilateral interstitial pulmonary infiltrates with bilateral pleural effusions and left basilar atelectasis. These findings may be due to CHF. Soft tissues: Normal. XR/XR ribs BI 3V* [id number] IMPRESSION: 1. No rib abnormality. 2. Findings consistent with CHF.
--- NOTE | 2020-09-06 09:12 | CT_ITS ---
WS: [id number] CT ABDOMEN AND PELVIS NONCONTRAST HISTORY: drop in hgb with fall, r/o internal bleeding TECHNIQUE: Imaging performed through the abdomen and pelvis. Coronal and sagittal reformats are submi tted. All CT scans at [facility] use at least one of these dose optimization techniques: automated exposure control; mA and/or kV adjustment per patient size (includes targeted exams where d ose is matched to clinical indication); or iterative reconstruction. DLP: 927.55 mGy.cm COMPARISON: 07/25/2020 Lower thorax: Small bilateral layering pleural effusions have increased in size since 07/25/2020. Liver: No interval change in appearance of the liver. No bile duct dilatation. No laceration apprecia fabien on this unenhanced study. Gallbladder: Obscured by motion. Pancreas: Atrophied and poorly visualized. Spleen: Normal. Adrenal glands: Normal. No mass. Right kidney: No interval change. Mild perinephric stranding. No obstruction. Left kidney: Similar to the prior study with parapelvic cysts. Aorta: Heavy calcification within the aorta. There is significant anasarca in the soft tissues and extending throughout the mesentery. There is a small amount of ascites. Not significantly progressed. There is a tiny focus of air anterior to the l iver which may be in the soft tissues external to the abdominal cavity. GI tract: Limited by motion. No obstructive pattern. Abdominal wall: Negative. No hernia. Pelvis: Britton catheter in a nondistended urinary bladder. Osseous structures: No lumbar spine fracture. CT/CT abdomen pelvis wo con [id number] IMPRESSION: 1. Progression of diffuse anasarca, bilateral pleural effusions and a small am ount of ascites since 07/25/2020. 2. No acute hematomas are identified but the study is limited without IV contr ast and motion.
[2020-09-06 09:41] LABS: Ferritin 516 ng/mL (15-150)
--- NOTE | 2020-09-06 09:44 | PC.OT ---
OT NOTE: OT EVALUATION ATTEMPTED. PATIENT IS OFF FLOOR FOR X-RAY. WILL ATTEMPT AGAIN AT A LATER TIME.
[2020-09-06] MEDS: lidocaine 1% 5 ML in potassium chloride premix 100 ML 25 ML IV (10:33)
[2020-09-06] MEDS: FUROsemide 10 mg/mL SDV 4mL 40 MG IVP ×2 (10:34→17:02)
--- NOTE | 2020-09-06 11:03 | PC.CHAP ---
Pastoral Care Encounter/Spiritual Assessment Type of Contact [] Declined air sealing technician visit [] Patient/Family/Request visit [] Outpatient visit [] Follow-up visit [] Physician referral [] Code/Alert [x] Routine visit [] Staff referral [] Actively dying [] Patient sleeping [] Family support [] [] Out of room [] Palliative care [] [] Receiving care in room [] Pre-surgical visit [] Trauma [] Long length of stay [] ICU visit [] Other: Relational/Emotional Strength [x] Patient feels connected with others/family/visitors/staff [] Distress [] Loneliness/isolation [] Abandonment Spirituality of Patient [x] Person of Adelaida [] Attends [employer] of their Adelaida [] Believes in Prayer [] Reads Bible or Islam materials [] There are Spiritual issues to be addressed Leasing Agent Interventions [x] Prayer [] Active listening [] Non-anxious presence [] Spiritual/emotional support [] Crisis/trauma care [] Spiritual counseling [] Bereavement support [] Provided bereavement packet [] Provided Bible/devotional materials [] Provided toy/stuffed animal, coloring book to patient or family member [] Provided Communion [] Anointing/[place] [] Salvation [] Completed spiritual assessment [] Other: Impact on Illness or Injury [] Angry [] Fearful [] Anxious [] Often cries [] Exhaustion [] Unable to work [] Unable to attend buddhist [] Unable to walk/stand [] Unable to read [] Unable to drive [] Unable to eat/drink [] Unable to sleep [] Unable to be with family [] Patient intubated [] Other: Summary +patient not very corhernt Time spent with patient 15 min
--- NOTE | 2020-09-06 11:26 | PC.NURSE ---
INCREASED AGITATION PT RETURNED FROM CT SCAN WITH INCREASE IN AGITATION NOTED - PT STATING YOUR CONSTANTLY DOING SOMETHING - THIS HURTS TELE PLACED ON - RAVI STARTED - LEFT LEG KERLIX REMOVED PER PHYSICAL THERAPY - SMALL SPOT NOTED TO POSTERIOR LEFT CALF - WILL MONITOR AT THIS TIME - 1:1 REMAINS AT SIDE
--- NOTE | 2020-09-06 13:22 | PC.NURSE ---
1:1 PT CONTINUES TO PULL AT IV LINE AND CATHETER - AGITATION NOTED - 1:1 SITTER AT SIDE - WILL CONTINUE TO MONITOR
--- NOTE | 2020-09-06 14:23 | P.PN_ITS ---
Subjective Subjective: Interval history: Patient was examined this morning, she is much more alert, awake, her complaint is some back pain after her fall, and some sternal pain after her fall, she is alert to person, not to place, not to time, she follows all commands, afebrile overnight, normotensive Vitals/I&O/Wt Last Vital Signs Temp 98.4 F 09/06/20 11:56 Pulse 87 09/06/20 11:56 Resp 17 09/06/20 11:56 BP 161/88 09/06/20 11:56 Pulse Ox 97 09/06/20 11:56 09/05/20 09/06/20 09/06/20 22:59 06:59 14:59 Intake Total 50 / 50 Output Total 1900 / 1900 980 / 980 Balance 50 / 50 -1900 / -1850 -980 / -980 Weight last 48 hrs Weight 54.431 kg Physical Exam Const: COMMON NORMALS: no acute distress ORIENTATION/CONSCIOUSNESS: Yes awake, Yes oriented to person and Yes confused; not oriented to place and not oriented to time HENMT: COMMON NORMALS: normocephalic HEAD & SCALP: normocephalic Neck/C-Spine: COMMON NORMALS: no JVD Resp: COMMON NORMALS: normal respiratory effort, No retractions, No use of accessory muscles and clear to auscultation bilaterally AUSCULTATION: clear to auscultation bilaterally Cardio: COMMON NORMALS: no JVD, regular rate, regular rhythm, S1 normal heart sound present and S2 normal heart sound present RATE: regular rate RHYTHM: regular rhythm HEART SOUNDS: S1 normal heart sound present and S2 normal heart sound present GI: COMMON NORMALS: Normal to inspection, nondistended, normoactive bowel sounds present, Soft to palpation, non-tender, No hepatosplenomegaly present, no masses and no bruits PALPATION: Yes Soft to palpation and Yes No hepatosplenomegaly present Extremity: COMMON NORMALS: no calf tenderness and no pedal edema Neuro: SENSORIUM/ORIENTATION: Yes oriented to person, No oriented to place and No oriented to time Urinary Catheter Management^: Britton: Cath Placed During This Visit: yes Reason for Continuing Indwelling Catheter: Accurate Measurement of Urinary Output in Critically Ill Patients Urinary Catheter Date of Insertion: 09/05/20 Data : 09/06/20 05:23 09/06/20 05:23 Micro: Microbiology 09/05/20 20:42 Blood Culture - Preliminary Blood SPECIMEN COLLECTED 09/05/20 20:43 Blood Culture - Preliminary Blood SPECIMEN COLLECTED A&P Assessment and plan (1) Altered mental status: -Normally alert oriented x1, can ambulate on her own, can feed herself -Does get a lot of questions appropriately, does follow commands, but at other times is confused, not eating anymore -CT of the head yesterday did not show any acute bleed, repeat CT of the head did not show any bleed or hematoma, CT of the neck, lumbar spine, thoracic spine did not show any acute fracture -Chest x-ray shows no focal pneumonia, mild pulmonary edema, BNP is over 16,000, has 1+ pitting edema -UA not indicative UTI -Carotid Doppler no significant carotid artery stenosis -Echocardiogram shows an EF of 50 to 55%, diastolic dysfunction, left atrium is enlarged, mild to moderate mitral regurg -Rib x-rays no acute fracture -Hip x-rays no acute fracture -Patient did became anemic overnight, hemoglobin 8.5, no hemodynamic compromise, CT scan of the abdomen pelvis was ordered to rule out internal bleeding given the traumatic nature however fall, no significant evidence of internal bleeding Plan: -Started on Rocephin for possible UTI -Creatinine 1.7, BNP is over 16,000, start Lasix 40 mg IV twice daily -Telemetry monitoring, -Certainly it is possible patient week suffering from concussion related to fall -Neurochecks, aspiration precautions, seizure precautions - Status: Acute (2) Fall: PT OT Status: Acute Qualifiers: Encounter type: initial encounter Qualified Code(s): W19.XXXA - Unspecified fall, initial encounter (3) Contusion of scalp: Looks clean and dry Status: Acute Qualifiers: Encounter type: initial encounter Qualified Code(s): S00.03XA - Contusion of scalp, initial encounter (4) Acute kidney injury: Creatinine 1.7, continue to monitor Status: Acute (5) Dementia: Status: Acute Qualifiers: Dementia type: unspecified type Dementia behavioral disturbance: without behavioral disturbance Qualified Code(s): F03.90 - Unspecified dementia without behavioral disturbance (6) Edema: Status: Acute (7) Fluid overload: Received Lasix therapy in the ER, continue to monitor for now, hold off on further Lasix therapy Status: Acute (8) Diastolic CHF: -With CT evidence of fluid overload, on 1 L -Lasix 40 mg IV twice daily with potassium replacement -Monitor respiratory status closely Status: Acute (9) NSTEMI (non-ST elevated myocardial infarction): -No acute ST-T wave changes, no significant delta troponin, likely supply demand ischemia from diastolic CHF Status: Acute Additional A&P Information CODE STATUS, she is DNR SCD for DVT prophylaxis, hold off on Lovenox until her head CT comes back negative Attestations Medical Necessity Statement*: Patient requires hospitalization, inpatient, for fall, altered mental status, UTI, diastolic CHF exacerbation, possible concussion Coding Level of Care Code Acute Director Safety for [facility] Fwd Diagnoses Altered mental status R41.82 Fall W19.XXXA Encounter type: initial encounter Contusion of scalp S00.03XA Encounter type: initial encounter Acute kidney injury N17.9 Dementia F03.90 Dementia type: unspecified type Dementia behavioral disturbance: without behavioral disturbance Edema R60.9 Fluid overload E87.70 Diastolic CHF I50.30 NSTEMI (non-ST elevated myocardial infarction) I21.4
--- NOTE | 2020-09-06 14:52 | PC.OT ---
OT note: Hold eval at this time due to agitation. Will attempt tomorrow as able.
[2020-09-06] MEDS: amlodipine 10 mg Tablet PO (15:33)
--- NOTE | 2020-09-06 15:56 | PC.NURSE ---
02 02 PLACED ON AT 2L NC - PT SATS VARY FROM 86-92% ON ROOM AIR - PT CONSTANTLY PULLING AT 02 - REMAINS CONFUSED - PLEASANT
[2020-09-06] MEDS: haloperidol inj 5 mg/mL INJ 1 mL 1 MG IM (16:58)
--- NOTE | 2020-09-06 17:06 | PC.NURSE ---
1MG HALDOL 1MG HALDOL GIVEN IM PER DR MCWILLIAMS ORDER - PT NOTED TO BE INCREASINGLY AGITATED - KICKING AT 1:1 SITTER - SWINGING AT BUTTER FAT TESTER - ATTEMPTING TO PULL GUADALUPE CATHETER OUT - IM INJECTION PER THIS NURSE - PT SCREAMING IM NOT SICK - DONT TOUCH ME - SITTER REMAINS AT SIDE - WILL CONTINUE TO MONITOR - [address] AT PRESENT TIME
--- NOTE | 2020-09-06 17:59 | PC.NURSE ---
END OF SHIFT UPDATE PT HAS REMAINED CONFUSED THROUGHOUT SHIFT - AWARE OF PERSON BUT CONFUSED TO TIME, PLACE AND SITUATION - NOTED AGGRESSION/AGITATION TO INCREASE THROUGHOUT AFTERNOON - HALDOL GIVEN PER DR MCWILLIAMS - PT CURRENTLY EATING SUPER TRAY WITHOUT DIFFICULTY - UPON ENTERING ROOM - THIS NURSE QUESTIONS PTS REGARDING HOW SHE FEELS - SHE STATES YOU GET AWAY FROM ME - 1:1 REMAINS AT SIDE WELL ALANNAH GARCIA -
[2020-09-06 18:35] LABS: Hematocrit 26.9 % (37.0-47.0); Hemoglobin 8.8 g/dL (11.5-15.3)
--- NOTE | 2020-09-06 18:42 | PC.NURSE ---
RESTING WITH RESP EVEN ET UNLABORED
--- NOTE | 2020-09-06 19:37 | USCV_ITS ---
Marianne Collins Age: 85 Gender: F : 1935 Exam Date: 09/06/2020 05:57 Ordering Phys: Polo Layne MD Technologist: SUMAN Exam Location: [facility] [place] Indication: AMS SOB BP: 143 / 81 HR: 75 Rhythm: Sinus Technical Quality: Adequate MEASUREMENTS (Male / Female) Normal Values 2D ECHO LV Diastolic Diameter PLAX 4.3 cm 4.2 - 5.9 / 3.9 - 5.3 cm LV Systolic Diameter PLAX 2.7 cm LV Chamber Size 2.6 cm IVS Diastolic Thickness 0.8 cm 0.6 - 1.0 / 0.6 - 0.9 cm IVS Systolic Thickness 1.3 cm LVPW Diastolic Thickness 0.7 cm 0.6 - 1.0 / 0.6 - 0.9 cm LVPW Systolic Thickness 1.2 cm RV Chamber Size 3.2 cm LVOT Diameter 2.0 cm LV Ejection Fraction 2D Teich 69.0 % LV Ejection Fraction MOD 2C 41.7 % LV Ejection Fraction 2C AL 40.6 % LA Diameter 2.8 cm LA Width 3.0 cm LA Height 4.0 cm RA Width 4.3 cm RA Height 4.2 cm Aorta at Sinotubular Diameter 2.1 cm M-MODE LV Diastolic Diameter MM 4.0 cm 4.2 - 5.9 / 3.9 - 5.3 cm LV Systolic Diameter MM 2.8 cm LV Ejection Fraction MM Teich 58.8 % IVS Diastolic Thickness MM 0.9 cm 0.6 - 1.0 / 0.6 - 0.9 cm IVS Systolic Thickness MM 1.0 cm LVPW Diastolic Thickness MM 0.9 cm 0.6 - 1.0 / 0.6 - 0.9 cm LVPW Systolic Thickness MM 1.2 cm RV Diastolic Diameter MM 1.1 cm Aortic Annulus Diameter 3.5 cm LA Ao Ratio MM 0.7 MV E Point Septal Separation 0.3 cm DOPPLER AV Peak Velocity 131.0 cm/s LVOT Peak Velocity 75.0 cm/s AV Area Cont Eq vti 1.8 cm squared AV Area Cont Eq pk 1.8 cm squared MV Area PHT 3.1 cm squared Mitral E to A Ratio 2.5 MV E' Velocity 74.0 cm/s Mitral E to MV E' Ratio 10.8 Mitral E to LV E' Lateral Ratio 10.5 Mitral E to LV E' Septal Ratio 11.1 TR Peak Velocity 246.2 cm/s TR Peak Gradient 24.2 mmHg TR Mean Velocity 177.7 cm/s TR Mean Gradient 15.0 mmHg TR Velocity Time Integral 74.2 cm TV Peak E Velocity 65.0 cm/s Right Atrial Pressure 3.0 mmHg Pulmonary Artery Systolic Pressu 27.2 mmHg PV Peak Velocity 55.0 cm/s RV Acceleration Time 0.1 s RV Ejection Time 0.3 s RV AcT/ET 0.3 FINDINGS Left Ventricle Normal left ventricular size. LV systolic function is borderline normal with EF of 50%. No regional wall motion abnormalities. Diastolic function is abnormal Right Ventricle The right ventricle is normal in size and function. Right Atrium The right atrium is normal in size. Prominent eustachian valve is noted. Normal RA pressure Left Atrium The left atrium is enlarged Mitral Valve Structurally normal mitral valve without significant stenosis or prolapse. There is mild to moderate mitral regurgitation. Aortic Valve Garossly thickened aortic valve without significant sclerosis or stenosis. There is no aortic regurgitation. Tricuspid Valve Structurally normal tricuspid valve without significant stenosis. Mild tricuspid regurgitation. RVSP is 35-40mmHg consistent with mild pulmonary hypertension Pulmonic Valve Structurally normal pulmonic valve without significant stenosis. There is no pulmonic regurgitation. Pericardium Normal pericardium without effusion. Pleural effusion is noted Aorta Normal ascending aorta dimension. CONCLUSIONS LV systolic function is borderline normal with EF of 50-55% Diastolic function is abnormal Left atrium is enlarged. Mild to moderate mitral regurgitation is seen Mild pulmonary hypertension Pleural effusion is present No comparison studies are available Jairo Gomez MD (Electronically Signed) Final Date: 06 September 2020 10:50 S
--- NOTE | 2020-09-06 19:37 | USCV_ITS ---
Marianne Collins Age: 85 Gender: F : 1935 Exam Date: 09/06/2020 06:28 Ordering Phys: Polo Layne MD Technologist: SUMAN [place] [facility] [place]ication: AMS Risk Factors: Unknown Previous Vascular Surgery: Unknown Right Brachial BP: / Left Brachial BP: / Right Left Velocity (cm/s) Spectral Plaque Velocity (cm/s) Spectral Plaque Syst/Diast Broadening Syst/Diast Broadening 64.30/ 13.10 Prox CCA 108.10/ 17.60 58.90/ 16.10 Mid CCA 94.70 / 15.80 71.70/ 13.90 Distal CCA 47.00 / 10.30 73.90/ 15.80 Prox ICA 85.40 / 20.50 77.90/ 16.80 Mid ICA 86.30 / 19.70 71.00/ 20.70 Distal ICA 81.20 / 21.40 54.50 ECA 91.40 1.32 ICA/CCA 0.91 Antegrade Vertebral Antegrade 31.70/ 11.20 cm/s 38.50/ 9.60 cm/s Tri Subclavian Tri 83.50 100.3 0 FINDINGS Comparison: none available. No significant elevation of systolic or diastolic velocities. Waveforms are normal. Minimal bilateral, intimal thickening with no elevation of velocity. CONCLUSIONS Bilateral ICA stenosis less than 50%. Dr. Aislinn Sharma DO (Electronically Signed) Final Date: 06 September 2020 08:25 S
[2020-09-06] MEDS: cefTRIAXone 1,000 MG in sodium chloride 0.9% (plus) 50 ML 100 MG IV (21:42)
[2020-09-07] VITALS (10 sets, daily range): BP systolic 117–134; BP diastolic 56–82; PULSE 71–115; RESP 17–18; TEMP 36.4–37; O2SAT 91–98
[2020-09-07] MEDS: famotidine 20 mg/2 mL INJ IVP ×3 (00:08→21:07)
[2020-09-07] MEDS: heparin 5,000 unit/mL INJ 1 mL 5000 UNIT SUBCUT ×3 (00:09→21:07)
[2020-09-07 00:33] LABS: Hematocrit 31.2 % (37.0-47.0); Hemoglobin 10.1 g/dL (11.5-15.3)
[2020-09-07] MEDS: lidocaine 1% 5 ML in potassium chloride premix 100 ML 25 ML IV (01:29)
[2020-09-07 06:19] LABS: Basophils % 0.2 %; Eosinophils # 0.1 10^3/uL (0.0-0.8); Eosinophils % 0.7 %; Hematocrit 34.9 % (37.0-47.0); Lymphocytes # 1.7 10^3/uL (0.8-4.8); Lymphocytes % 11.7 %; Mean Corpuscular HGB Conc 31.5 g/dL (30.0-36.0); Mean Corpuscular Hemoglobin 30.2 pg (28.0-34.0); Mean Corpuscular Volume 95.9 fL (81-99); Mean Platelet Volume 11.1 fL (7.4-10.4); Monocytes # 0.9 10^3/uL (0.2-0.9); Monocytes % 6.2 %; Neutrophils # 11.65 10^3/uL (1.8-7.7); Neutrophils % 80.8 %; Nucleated Red Blood Cells % 0 %; Platelet Count 489 10^3/cmm (130-400); Red Blood Count 3.64 10^6/uL (4.1-5.3); Red Cell Distribution Width 14.7 % (12.1-15.1); White Blood Count 14.4 10^3/uL (4.0-10.0)
[2020-09-07 07:03] LABS: Alanine Aminotransferase 8 U/L (0-33); Albumin Level 2.6 g/dL (3.5-5.2); Alkaline Phosphatase 74 IU/L (35-105); Anion Gap 17.6 (5-19); Aspartate Amino Transferase 11 U/L (0-32); Blood Urea Nitrogen 30 mg/dL (8-23); Calcium 8.5 mg/dL (8.5-10.5); Carbon Dioxide 27 mmol/L (22-29); Chloride 98 mmol/L (98-107); Globulin 4.2 g/dL (1.3-4.6); Glucose 81 mg/dL (65-115); Magnesium 1.6 mg/dL (1.7-2.3); Osmolality Calculated 293 mOsm/kg (285-295); Phosphorus 4.3 mg/dL (2.5-4.5); Potassium 3.6 mmol/L (3.5-5.1); Sodium 139 mmol/L (136-145); Total Bilirubin 0.3 mg/dL (0.15-1.2); Total Protein 6.8 g/dL (6.6-8.7)
--- NOTE | 2020-09-07 09:34 | PC.NURSE ---
meds lasix, norvasc, and potassium not given per dr order.
--- NOTE | 2020-09-07 11:19 | P.PN_ITS ---
Subjective Subjective: Interval history: This morning patient was gotten up with physical therapy, she was a bit drowsy, she felt was found to be orthostatic positive, she has diuresed over 5 L, currently on 2 L, this morning she is quite drowsy, but does awaken to commands, does follow commands squeezes my fingers wiggles her toes, is able to answer questions, Vitals/I&O/Wt Last Vital Signs Temp 98.0 F 09/07/20 07:19 Pulse 71 09/07/20 09:33 Resp 18 09/07/20 09:33 BP 117/70 09/07/20 07:19 Pulse Ox 95 09/07/20 09:33 09/06/20 09/07/20 09/07/20 22:59 06:59 14:59 Intake Total 155 / 155 155 / 310 Output Total 1900 / 2880 2400 / 5280 Balance -1745 / -2725 -2245 / -4970 Weight last 48 hrs Weight 54.431 kg Physical Exam Const: COMMON NORMALS: no acute distress and alert ORIENTATION/CONSCIOUSNESS: Yes awake and Yes oriented to person; not oriented to place and not oriented to time HENMT: COMMON NORMALS: normocephalic HEAD & SCALP: normocephalic Neck/C-Spine: COMMON NORMALS: no JVD Resp: COMMON NORMALS: normal respiratory effort, No retractions, No use of accessory muscles and clear to auscultation bilaterally AUSCULTATION: clear to auscultation bilaterally Cardio: COMMON NORMALS: no JVD, regular rate, regular rhythm, S1 normal heart sound present and S2 normal heart sound present RATE: regular rate RHYTHM: regular rhythm HEART SOUNDS: S1 normal heart sound present and S2 normal heart sound present GI: COMMON NORMALS: Normal to inspection, nondistended, normoactive bowel sounds present, Soft to palpation, non-tender, No hepatosplenomegaly present, no masses and no bruits PALPATION: Yes Soft to palpation and Yes No hepatosplenomegaly present Extremity: COMMON NORMALS: capillary refill normal, no clubbing, cyanosis or edema, no calf tenderness and no pedal edema Neuro: SENSORIUM/ORIENTATION: Yes alert, Yes oriented to person, No oriented to place and No oriented to time Urinary Catheter Management^: Britton: Cath Placed During This Visit: yes Reason for Continuing Indwelling Catheter: Acute Urinary Retention or Obstruction Urinary Catheter Date of Insertion: 09/05/20 Data : 09/07/20 05:10 09/07/20 05:10 Micro: Microbiology 09/06/20 00:40 Urine Culture - Preliminary Urine Catheterized 09/05/20 20:42 Blood Culture - Preliminary Blood NEGATIVE TO DATE 09/05/20 20:43 Blood Culture - Preliminary Blood NEGATIVE TO DATE A&P Assessment and plan (1) Altered mental status: -Normally alert oriented x1, can ambulate on her own, can feed herself -Does get a lot of questions appropriately, does follow commands, but at other times is confused, not eating anymore -CT of the head yesterday did not show any acute bleed, repeat CT of the head did not show any bleed or hematoma, CT of the neck, lumbar spine, thoracic spine did not show any acute fracture -Chest x-ray shows no focal pneumonia, mild pulmonary edema, BNP is over 16,000, has 1+ pitting edema -UA not indicative UTI -Carotid Doppler no significant carotid artery stenosis -Echocardiogram shows an EF of 50 to 55%, diastolic dysfunction, left atrium is enlarged, mild to moderate mitral regurg -Rib x-rays no acute fracture -Hip x-rays no acute fracture -Patient did became anemic overnight, hemoglobin 8.5, no hemodynamic compromise, CT scan of the abdomen pelvis was ordered to rule out internal bleeding given the traumatic nature however fall, no significant evidence of internal bleeding -This morning she is alert to person, a bit drowsy, but follows all commands, less talkative, but does answer questions somewhat appropriately Plan: -Started on Rocephin for possible UTI, urine culture so far negative -Creatinine 1.8, BNP is over 16,000, diuresed over 5 L yesterday, orthostatic this morning, hold off on further Lasix therapy, currently on 2 L -Telemetry monitoring, -I am highly suspicious that patient has developed a concussion related to fall -Neurochecks, aspiration precautions, seizure precautions Plan for today continue to monitor for fevers, monitor mentation continue antibiotics, hold diuretic therapy, monitor blood pressures Status: Acute (2) Fall: PT OT Status: Acute Qualifiers: Encounter type: initial encounter Qualified Code(s): W19.XXXA - Unspecified fall, initial encounter (3) Contusion of scalp: Looks clean and dry Status: Acute Qualifiers: Encounter type: initial encounter Qualified Code(s): S00.03XA - Contusion of scalp, initial encounter (4) Acute kidney injury: Creatinine 1.8, continue to monitor Status: Acute (5) Dementia: Status: Acute Qualifiers: Dementia type: unspecified type Dementia behavioral disturbance: without behavioral disturbance Qualified Code(s): F03.90 - Unspecified dementia without behavioral disturbance (6) Edema: Status: Acute (7) Fluid overload: Received Lasix therapy in the ER, continue to monitor for now, hold off on further Lasix therapy Status: Acute (8) Diastolic CHF: -With CT evidence of fluid overload, on 1 L -Lasix 40 mg IV twice daily with potassium replacement currently on hold given orthostatic positive, -5 L -Monitor respiratory status closely Status: Acute (9) NSTEMI (non-ST elevated myocardial infarction): -No acute ST-T wave changes, no significant delta troponin, likely supply demand ischemia from diastolic CHF Status: Acute Additional A&P Information CODE STATUS, she is DNR SCD for DVT prophylaxis, Lovenox Attestations Medical Necessity Statement*: Patient requires hospitalization for altered mental status, falls, diastolic CHF exacerbation, now with orthostatic hypotension Coding Level of Care Code Acute Trash Collector Supervisor for [facility] Fwd Diagnoses Altered mental status R41.82 Fall W19.XXXA Encounter type: initial encounter Contusion of scalp S00.03XA Encounter type: initial encounter Acute kidney injury N17.9 Dementia F03.90 Dementia type: unspecified type Dementia behavioral disturbance: without behavioral disturbance Edema R60.9 Fluid overload E87.70 Diastolic CHF I50.30 NSTEMI (non-ST elevated myocardial infarction) I21.4
[2020-09-07] MEDS: cefTRIAXone 1,000 MG in sodium chloride 0.9% (plus) 50 ML 100 MG IV (18:39)
[2020-09-08] VITALS (11 sets, daily range): BP systolic 93–134; BP diastolic 58–82; PULSE 0–121; RESP 17–22; TEMP 36.6–36.8; O2SAT 90–98
[2020-09-08 06:22] LABS: Alkaline Phosphatase 62 IU/L (35-105); Aspartate Amino Transferase 13 U/L (0-32); Carbon Dioxide 28 mmol/L (22-29); Chloride 98 mmol/L (98-107); Glucose 102 mg/dL (65-115); Phosphorus 3.7 mg/dL (2.5-4.5); Sodium 136 mmol/L (136-145)
[2020-09-08 06:25] LABS: Basophils % 0.3 %; Eosinophils # 0.2 10^3/uL (0.0-0.8); Eosinophils % 1.5 %; Hematocrit 29.2 % (37.0-47.0); Hemoglobin 9.2 g/dL (11.5-15.3); Lymphocytes # 1.2 10^3/uL (0.8-4.8); Lymphocytes % 11.2 %; Mean Corpuscular HGB Conc 31.5 g/dL (30.0-36.0); Mean Corpuscular Volume 95.1 fL (81-99); Mean Platelet Volume 11.1 fL (7.4-10.4); Monocytes # 0.9 10^3/uL (0.2-0.9); Monocytes % 8.1 %; Neutrophils # 8.35 10^3/uL (1.8-7.7); Neutrophils % 78.5 %; Nucleated Red Blood Cells % 0 %; Platelet Count 366 10^3/cmm (130-400); Red Blood Count 3.07 10^6/uL (4.1-5.3); Red Cell Distribution Width 14.7 % (12.1-15.1); White Blood Count 10.6 10^3/uL (4.0-10.0)
[2020-09-08 06:59] LABS: Anion Gap 13.1 (5-19); Potassium 3.1 mmol/L (3.5-5.1)
[2020-09-08 07:00] LABS: Blood Urea Nitrogen 33 mg/dL (8-23); Calcium 7.7 mg/dL (8.5-10.5); Magnesium 1.7 mg/dL (1.7-2.3); Osmolality Calculated 289 mOsm/kg (285-295); Total Bilirubin 0.2 mg/dL (0.15-1.2)
[2020-09-08 07:01] LABS: Alanine Aminotransferase 6 U/L (0-33); Albumin Level 2.1 g/dL (3.5-5.2); Globulin 3.7 g/dL (1.3-4.6); Total Protein 5.8 g/dL (6.6-8.7)
[2020-09-08] MEDS: famotidine 20 mg/2 mL INJ IVP ×2 (08:14→21:55)
[2020-09-08] MEDS: heparin 5,000 unit/mL INJ 1 mL 5000 UNIT SUBCUT (08:15)
[2020-09-08] MEDS: amlodipine 10 mg Tablet PO (08:16)
[2020-09-08] MEDS: lidocaine 1% 5 ML in potassium chloride premix 100 ML 25 ML IV (09:58)
[2020-09-08] MEDS: acetaminophen 325 mg Tablet 650 MG PO (09:59)
--- NOTE | 2020-09-08 12:06 | ECG_ITS ---
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 Measurements Intervals [place] Rate: 115 P: NM: QRS: 71 QRSD: 76 T: 60 QT: 322 QTc: 446 Interpretive Statements ATRIAL FIBRILLATION WITH RAPID VENTRICULAR RESPONSE NONSPECIFIC ST & T-WAVE ABNORMALITY Compared to ECG 09/05/2020 20:47:17 T-wave abnormality now present Sinus rhythm no longer present Electronically Signed On 09-09-2020 18:16:03 CDT by Myranda Muhammad M.D. [id number]
--- NOTE | 2020-09-08 12:08 | CT_ITS ---
WS: [id number] CT HEAD NONCONTRAST HISTORY: new afib, ams, r/o cva TECHNIQUE: Contiguous axial imaging performed through the brain in 2.5 mm imaging. Bone and soft tiss ue windows. Sagittal and coronal reformats reviewed. All CT scans at [facility] use at le ast one of these dose optimization techniques: automated exposure control; mA and/or kV adjustment pe r patient size (includes targeted exams where dose is matched to clinical indication); or iterative r econstruction. DLP: 913.12 mGy.cm COMPARISON: 09/05/2020 No acute intracranial hemorrhage, midline shift or mass effect. Moderate atrophy and chronic ischemic disease. Mild bilateral cerebellar atrophy. Ventricles: Ventricles are mildly prominent on the basis of atrophy. No interval change since the pr ior study. Paranasal sinuses: As visualized are clear. Mastoid air cells: Well pneumatized. Calvarium and scalp: Extensive hyperostosis frontalis interna. CT/CT head wo con* [id number] IMPRESSION: 1. Age-related atrophy and chronic ischemic disease. 2. No acute intracranial hemorrhage or edema.
--- NOTE | 2020-09-08 13:15 | P.PN_ITS ---
Subjective Subjective: Interval history: This morning patient was examined, she is alert to person, she actually remembers me, she follows all commands, squeezes my fingers wiggles her toes, she is able to smile, again she is a bit drowsy, she has no complaints except some right shoulder pain, some anterior chest discomfort, and complains about a headache She did work with physical therapy, there was concern for generalized weakness, drowsiness At noon or so, it was noted that patient had new onset atrial fibrillation on telemetry monitoring, heart rates as high 130 Vitals/I&O/Wt Last Vital Signs Temp 97.8 F 09/08/20 08:00 Pulse 121 H 09/08/20 10:13 Resp 22 H 09/08/20 10:13 BP 117/82 09/08/20 08:00 Pulse Ox 90 09/08/20 10:13 09/07/20 09/08/20 09/08/20 22:59 06:59 14:59 Intake Total 290 / 290 120 / 120 Output Total 500 / 500 550 / 1050 Balance -210 / -210 -550 / -760 120 / 120 Physical Exam Const: COMMON NORMALS: no acute distress and alert GENERAL APPEARANCE: cooperative ORIENTATION/CONSCIOUSNESS: Yes awake, Yes oriented to person and Yes confused; not oriented to place and not oriented to time HENMT: COMMON NORMALS: normocephalic HEAD & SCALP: normocephalic Eye: COMMON NORMALS: Equal, round and reactive pupils present PUPIL: Yes Equal, round and reactive pupils present Neck/C-Spine: COMMON NORMALS: full ROM and no JVD Resp: COMMON NORMALS: normal respiratory effort, No retractions, No use of accessory muscles and clear to auscultation bilaterally EFFORT & INSPECTION: Yes able to speak in complete sentences AUSCULTATION: clear to auscultation bilaterally Cardio: COMMON NORMALS: no JVD, S1 normal heart sound present and S2 normal heart sound present RATE: tachycardic RHYTHM: abnormal rhythm HEART SOUNDS: S1 normal heart sound present, S2 normal heart sound present and no murmurs GI: COMMON NORMALS: Normal to inspection, nondistended, normoactive bowel sounds present, Soft to palpation, non-tender, No hepatosplenomegaly present, no masses and no bruits PALPATION: Yes Soft to palpation and Yes No he patosplenomegaly present Extremity: COMMON NORMALS: capillary refill normal, no clubbing, cyanosis or edema, no calf tenderness and no pedal edema NARRATIVE EXTREMITY EXAM: 1+ pitting edema Neuro: SENSORIUM/ORIENTATION: Yes alert, Yes oriented to person, No oriented to place and No oriented to time SPEECH: speech normal OTHER: Pupils equal round reactive to light, is able to squeeze my fingers bilaterally, wiggle her toes, strength seems equal bilaterally, no facial droop, no slurring of her speech, she sticks out her tongue, can move her to the left and moved to the right, can close her eyes, no tremors noted on my examination today Urinary Catheter Management^: Britton: Cath Placed During This Visit: yes Reason for Continuing Indwelling Catheter: Accurate Measurement of Urinary Output in Critically Ill Patients Urinary Catheter Date of Insertion: 09/05/20 Data : 09/08/20 05:26 09/08/20 05:26 Micro: Microbiology 09/06/20 00:40 Urine Culture - Preliminary Urine Catheterized A&P Assessment and plan (1) Altered mental status: -Normally alert oriented x1, can ambulate on her own, can feed herself -Does get a lot of questions appropriately, does follow commands, remains a bit drowsy -CT of the head yesterday did not show any acute bleed, repeat CT of the head did not show any bleed or hematoma, CT of the neck, lumbar spine, thoracic spine did not show any acute fracture -Chest x-ray shows no focal pneumonia, mild pulmonary edema, BNP is over 16,000, has 1+ pitting edema -UA not indicative UTI -Carotid Doppler no significant carotid artery stenosis -Echocardiogram shows an EF of 50 to 55%, diastolic dysfunction, left atrium is enlarged, mild to moderate mitral regurg -Rib x-rays no acute fracture -Hip x-rays no acute fracture -Patient did became anemic overnight, now hemoglobin is 9.2, no hemodynamic compromise, CT scan of the abdomen pelvis was ordered to rule out internal b leeding given the traumatic nature however fall, no significant evidence of internal bleeding -This morning she is alert to person, a bit drowsy, but follows all commands Plan: -Continue Rocephin -Creatinine 2.0, BNP is over 16,000, diuresed over 7.4 L since admission, currently on 2 L to room air, continue 40 mg p.o. Lasix with potassium -Telemetry monitoring, -Patient has likely developed a concussion related to her fall, will need to continue to monitor mentation, medications for headaches, can consider TCA -Neurochecks, aspiration precautions, seizure precautions Plan for today get heart rates under control, repeat CT of the head, placed on heparin drip, monitor hemoglobin, anticipate discharge in the next 24 hours, will discuss with family Status: Acute (2) Fall: PT OT Status: Acute Qualifiers: Encounter type: initial encounter Qualified Code(s): W19.XXXA - Unspecified fall, initial encounter (3) Contusion of scalp: Looks clean and dry Status: Acute Qualifiers: Encounter type: initial encounter Qualified Code(s): S00.03XA - Con tusion of scalp, initial encounter (4) Acute kidney injury: Creatinine 1.8, continue to monitor Status: Acute (5) Dementia: Status: Acute Qualifiers: Dementia type: unspecified type Dementia behavioral disturbance: without behavioral disturbance Qualified Code(s): F03.90 - Unspecified dementia without behavioral disturbance (6) Edema: Status: Acute (7) Fluid overload: Received Lasix therapy in the ER, continue to monitor for now, hold off on further Lasix therapy Status: Acute (8) Diastolic CHF: -With CT evidence of fluid overload, on 1 L -Start Lasix 40 mg p.o. daily, currently is -7 L -Monitor respiratory status closely Status: Acute (9) NSTEMI (non-ST elevated myocardial infarction): -No acute ST-T wave changes, no significant delta troponin, likely supply demand ischemia from diastolic CHF Status: Acute (10) Atrial fibrillation with RVR: -Heart rates under 90s after 20 mg of IV push Cardizem -Continue p.o. Cardizem 30 every 6 hours -Start on heparin drip, monitor hemoglobin, monitor for signs of bleeding -Echocardiogram as above -We will discuss with family about chronic anticoagulation, given her falls Status: Acute Additional A&P Information CODE STATUS, she is DNR SCD for DVT prophylaxis, heparin drip Attestations Medical Necessity Statement*: Patient requires hospitalization for altered mental status, UTI, concussion, diastolic CHF, now with new onset A. fib Coding Level of Care Code Acute [facility] [employer] for [facility] Diagnoses Altered mental status R41.82 Fall W19.XXXA Encounter type: initial encounter Contusion of scalp S00.03XA Encounter type: initial encounter Acute kidney injury N17.9 Dementia F03.90 Dementia type: unspecified type Dementia behavioral disturbance: without behavioral disturbance Edema R60.9 Fluid overload E87.70 Diastolic CHF I50.30 NSTEMI (non-ST elevated myocardial infarction) I21.4 Atrial fibrillation with RVR I48.91
[2020-09-08 13:18] LABS: Troponin(5th) Baseline 46 ng/L (0-10)
--- NOTE | 2020-09-08 14:06 | ECG_ITS ---
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 Measurements Intervals [place] Rate: 91 P: [place]: QRS: 64 QRSD: 84 T: 0 QT: 390 QTc: 480 Interpretive Statements ATRIAL FIBRILLATION NONSPECIFIC ST & T-WAVE ABNORMALITY ABNORMAL RHYTHM ECG Compared to ECG 09/08/2020 12:14:03 No significant changes Electronically Signed On 09-09-2020 18:22:17 CDT by Myranda Muhammad M.D. [id number]
[2020-09-08 14:41] LABS: Hematocrit 33.5 % (37.0-47.0); Hemoglobin 10.7 g/dL (11.5-15.3)
[2020-09-08] MEDS: dilTIAZem 30 mg Tablet PO ×2 (14:59→21:55)
[2020-09-08 15:04] LABS: Troponin 5 2HR 46.32 ng/L (0-10); Troponin 5 2HR Delta 0.32 ABS# (0-10)
[2020-09-08 17:06] LABS: Partial Thromboplastin Time 32.2 SECONDS (23.9-36.7)
--- NOTE | 2020-09-08 18:06 | ECG_ITS ---
[facility] Test Date: 2020-09-08 Pat Name: Marianne Collins Department: Room: 276 Gender: Female Train Clerk: : 1935 Requested By: Polo Layne Order Number: [id number] Krystyna MD: Magdy Aiken M.D. Measurements Intervals [place] Rate: 95 P: [place]: QRS: 75 QRSD: 81 T: -60 QT: 371 QTc: 468 Interpretive Statements ATRIAL FIBRILLATION NONSPECIFIC ST & T-WAVE ABNORMALITY Compared to ECG 09/08/2020 14:56:24 No significant changes Electronically Signed On 09-08-2020 20:46:17 CDT by Magdy Aiken M.D. [id number]
[2020-09-08] MEDS: heparin 5,000 unit/mL INJ 1 mL IV (18:38)
[2020-09-08 18:56] LABS: Troponin 5 6HR 46.01 ng/L (0-10); Troponin 5 6HR Delta 0.01 ng/L (0-12)
[2020-09-08 20:23] LABS: Hematocrit 31.5 % (37.0-47.0)
[2020-09-08] MEDS: cefTRIAXone 1,000 MG in sodium chloride 0.9% (plus) 50 ML 100 MG IV (21:55)
[2020-09-09] MEDS: heparin 5,000 unit/mL INJ 1 mL IV ×2 (01:09→08:23)
[2020-09-09 02:16] LABS: Basophils % 0.2 %; Eosinophils # 0.1 10^3/uL (0.0-0.8); Eosinophils % 1.1 %; Hematocrit 31.4 % (37.0-47.0); Hemoglobin 10.2 g/dL (11.5-15.3); Lymphocytes # 1.5 10^3/uL (0.8-4.8); Mean Corpuscular HGB Conc 32.5 g/dL (30.0-36.0); Mean Corpuscular Hemoglobin 30.4 pg (28.0-34.0); Mean Corpuscular Volume 93.7 fL (81-99); Mean Platelet Volume 10.5 fL (7.4-10.4); Monocytes # 0.9 10^3/uL (0.2-0.9); Monocytes % 6.9 %; Neutrophils # 9.75 10^3/uL (1.8-7.7); Neutrophils % 79.5 %; Nucleated Red Blood Cells % 0 %; Platelet Count 386 10^3/cmm (130-400); Red Blood Count 3.35 10^6/uL (4.1-5.3); Red Cell Distribution Width 14.6 % (12.1-15.1); White Blood Count 12.3 10^3/uL (4.0-10.0)
[2020-09-09 02:25] LABS: INR 1.05 (0.8-1.2)
[2020-09-09 02:34] LABS: Alanine Aminotransferase < 5 U/L (0-33); Albumin Level 2.2 g/dL (3.5-5.2); Alkaline Phosphatase 62 IU/L (35-105); Aspartate Amino Transferase 7 U/L (0-32); Blood Urea Nitrogen 35 mg/dL (8-23); Calcium 7.7 mg/dL (8.5-10.5); Carbon Dioxide 28 mmol/L (22-29); Chloride 99 mmol/L (98-107); Globulin 3.9 g/dL (1.3-4.6); Glucose 116 mg/dL (65-115); Magnesium 1.7 mg/dL (1.7-2.3); Osmolality Calculated 295 mOsm/kg (285-295); Sodium 138 mmol/L (136-145); Total Bilirubin 0.2 mg/dL (0.15-1.2); Total Protein 6.1 g/dL (6.6-8.7)
[2020-09-09] MEDS: dilTIAZem 30 mg Tablet PO ×3 (03:11→15:56)
[2020-09-09 03:48] LABS: NT Pro B Type Natriuretic Pept 13758 pg/mL (0-450)
[2020-09-09 04:00] VITALS: BP 130/72; PULSE 69; RESP 18; TEMP 36.7; O2SAT 94
[2020-09-09 07:28] LABS: Partial Thromboplastin Time 40.9 SECONDS (23.9-36.7)
[2020-09-09 07:44] VITALS: BP 110/72; PULSE 95; RESP 18; TEMP 36.6; O2SAT 95
[2020-09-09] MEDS: heparin drip 25,000 UNIT/500 ML PREMIX 19 UNIT IV (08:26)
[2020-09-09] MEDS: famotidine 20 mg/2 mL INJ IVP (08:26)
[2020-09-09] MEDS: FUROsemide 20 mg Tablet PO (08:27)
[2020-09-09 10:01] VITALS: PULSE 69; RESP 18; O2SAT 93
[2020-09-09] MEDS: lidocaine 1% 5 ML in potassium chloride premix 100 ML 25 ML IV (10:13)
--- NOTE | 2020-09-09 10:43 | P.DS_ITS ---
Discharge Providers Date of Admission: 09/06/20 22:49 Date of Discharge: September 09, 2020 Attending Provider at Admission: Polo Layne MD Attending Provider at Discharge: Polo Layne MD Primary Care Provider: Marciano Walters DO Diagnoses at Discharge Discharge Diagnosis (1) Altered mental status: Status: Acute (2) Fall: Status: Acute Qualifiers: Encounter type: initial encounter Qualified Code(s): W19.XXXA - Unspecified fall, initial encounter (3) Contusion of scalp: Status: Acute Qualifiers: Encounter type: initial encounter Qualified Code(s): S00.03XA - Contusion of scalp, initial encounter (4) Acute kidney injury: Status: Acute (5) Dementia: Status: Acute Qualifiers: Dementia type: unspecified type Dementia behavioral disturbance: without behavioral disturbance Qualified Code(s): F03.90 - Unspecified dementia without behavioral disturbance (6) Edema: Status: Acute (7) Fluid overload: Status: Acute (8) Diastolic CHF: Status: Acute (9) NSTEMI (non-ST elevated myocardial infarction): Status: Acute (10) Atrial fibrillation with RVR: Status: Acute Reason for Visit Reason for Visit: fall last night Hospital Course Hospital Course Marianne Collins is a 85 year old female with a past medical history of dementia, DNR/DNI, alert oriented x1, can carry out conversations, can recognize family me mbers, can ambulate on her own, is a fall risk, can feed herself, who presents to [facility] from [facility] due to concerns for increased confusion, decreased appetite. Patient was admitted to [facility] for altered mental status: -Altered mental status likely secondary to concussion related symptoms secondary to head trauma related to fall, she had complaints of headaches, episodes of confusion -Her mentation returned back to baseline before discharge -We will have patient follow-up with neurology --CT of the head yesterday did not show any acute bleed, CT of the neck, lumbar spine, thoracic spine did not show any acute fracture -Chest x-ray shows no focal pneumonia -UA not indicated of a UTI, but she was given Rocephin for 3 days -Carotid artery ultrasound no flow-limiting disease -Cardiac echocardiogram showed an EF of 50 to 55%, diastolic dysfunction On admission patient was also found to have a diastolic CHF exacerbation, BNP over 16,000, requiring up to 2 L, chest x-ray showing pulmonary vascular congestion, she received Lasix therapy, she diuresed over 7 L with a touch of IV Lasix; unfortunately I think that she got over diuresed, became orthostatic, and creatinine went up to 2.0. It seems like patient is very sensitive to IV Lasix, clinically patient looks quite dry. I have instructed longterm to hold Lasix until Saturday, recheck creatinine, if creatinine has come down resume Lasix 20 mg p.o. which I think would be a reasonable dose, along with potassium replacement. Patient did have complaints of rib pain, likely related to fall, x-ray did not show any acute fracture but I do suspect she has either bruised rib or a fracture at that does not show up on x-ray. No focal signs of pneumonia, pain control with Ultram. Will discharge on Ultram, with monitoring respiratory status as outpatient, monitoring for pneumonia. Patient developed new onset atrial fibrillation, controlled with Cardizem, placed on a heparin drip and clinically monitored. On discharge patient's hemoglobin is 10.2. Chads vas score of 3. Discharged on Eliquis 2.5 mg twice daily, Cardizem 60 twice daily. Recheck CBC in 1 week. I discussed the risks and benefits of anticoagulation for atrial fibrillation with patient's son, her healthcare power of assistant district attorney, my concerns were GI bleeds, worsening anemia, as she has been anemic in the past hemoglobin 7.8, she has had falls, significant bleeding events and intracranial hemorrhage and traumatic bleeding associated with anticoagulation. He voiced understanding, all questions answered, accepted the risks and benefits, agreed to proceed with anticoagulation. [facility] was advised to monitor CBC, monitor for signs of anemia, monitor for falls, monitor for bloody or black stools Physical Exam Const: COMMON NORMALS: no acute distress ORIENTATION/CONSCIOUSNESS: Yes awake and Yes oriented to person; not oriented to place and not oriented to time HENMT: COMMON NORMALS: normocephalic HEAD & SCALP: normocephalic Neck/C-Spine: COMMON NORMALS: no JVD Resp: COMMON NORMALS: normal respiratory effort, No retractions, No use of accessory muscles and clear to auscultation bilaterally AUSCULTATION: clear to auscultation bilaterally Cardio: COMMON NORMALS: no JVD, regular rate, S1 normal heart sound present and S2 normal heart sound present RATE: regular rate RHYTHM: abnormal rhythm irregularly irregular HEART SOUNDS: S1 normal heart sound present and S2 normal heart sound present GI: COMMON NORMALS: Normal to inspection, nondistended, normoactive bowel sounds present, Soft to palpation, non-tender, No hepatosplenomegaly present, no masses and no bruits PALPATION: Yes Soft to palpation and Yes No hepatosplenomegaly present Extremity: COMMON NORMALS: capillary refill normal, no clubbing, cyanosis or edema, no calf tenderness and no pedal edema Neuro: SENSORIUM/ORIENTATION: Yes oriented to person, No oriented to place and No oriented to time Psych: COMMON NORMALS: mental status grossly normal Urinary Catheter Management^: Britton: Cath Placed During This Visit: yes Reason for Continuing Indwelling Catheter: Accurate Measurement of Urinary Output in Critically Ill Patients Urinary Catheter Date of Insertion: 09/05/20 Discharge Data Data Completed and Pending: Completed Studies During Hospitalization Category Date Time Status CT abdomen pelvis wo con 09819 Rout ine Cat Scan 09/06/20 09:[address] head wo con* 7 0450 Stat Cat Scan 09/08/20 12:[address] head wo con* 7 0450 Urgent Cat Scan 09/05/20 16:52 Completed XR chest 1V melisa ble [id number] Urgent Exams 09/05/20 14:17 Completed XR hip BI 3-4V wo /w pel 31619 Routi ne Exams 09/06/20 09:12 Completed XR ribs BI 3V* 71 110 Routine Exams 09/06/20 09:12 Completed CV carotid duplex BI* [id number] Routine Ultrasound 09/06/20 19:37 Completed CV echo complete* [id number] Routine Ultrasound 09/06/20 19:37 Completed Pending at discharge Category Date Time Status Blood Culture Sta t Lab 09/05/20 20:42 Results Complete Blood Co unt w/Auto AM LABS Lab 09/10/20 04:00 Ordered Complete Blood Co unt w/Auto AM LABS Lab 09/11/20 04:00 Ordered Comprehensive Met abolic Panel AM LA BS Lab 09/10/20 04:00 Ordered Comprehensive Met abolic Panel AM LA BS Lab 09/11/20 04:00 Ordered Immunochemical Fe urszula OCB Routine Lab 09/06/20 09:16 Uncollected Magnesium AM LABS Lab 09/10/20 04:00 Ordered Magnesium AM LABS Lab 09/11/20 04:00 Ordered NT Pro B Type Brittni riuretic Pept QAM Lab 09/10/20 06:00 Ordered NT Pro B Type Brittni riuretic Pept QAM Lab 09/11/20 06:00 Ordered Phosphorus AM LAB S Lab 09/10/20 04:00 Ordered Phosphorus AM LAB S Lab 09/11/20 04:00 Ordered Platelet Count Q2 D Lab 09/10/20 04:00 Ordered Platelet Count Q2 D Lab 09/12/20 04:00 Ordered Prothrombin Time INR AM LABS Lab 09/10/20 04:00 Ordered Prothrombin Time INR AM LABS Lab 09/11/20 04:00 Ordered Labs from last 24 hours 09/09/20 09/09/20 09/09/20 07:05 02:07 02:07 WBC RBC Hgb Hct MCV MCH MCHC RDW Plt Count MPV Neut % (Auto) Lymph % (Auto) [place] % (Auto) Eos % (Auto) Baso % (Auto) Neut # (Auto) Lymph # (Auto) [place] # (Auto) Eos # (Auto) Baso # (Auto) Nucleated RBC % (a uto) Nucleated RBCs # PT 14.00 INR 1.05 APTT 40.9 H Sodium Potassium Chloride Carbon Dioxide Anion Gap BUN Creatinine GFR Calculation Glucose Calculated Osmolal ity Calcium Phosphorus Magnesium Total Bilirubin AST ALT Alkaline Phosphata se Troponin T Baselin e Troponin T 120 Min [place] Delta Troponin T Troponin T Hi Sens 6Hr Troponin T Hi Sens 6Hr Delta NT-Pro-B Natriuret Pep 40407 H Total Protein Albumin Globulin 09/09/20 09/09/20 09/09/20 02:07 02:07 00:00 WBC 12.3 H RBC 3.35 L Hgb 10.2 L Hct 31.4 L MCV 93.7 MCH 30.4 MCHC 32.5 RDW 14.6 Plt Count 386 MPV 10.5 H Neut % (Auto) 79.5 Lymph % (Auto) 12.0 [place] % (Auto) 6.9 Eos % (Auto) 1.1 Baso % (Auto) 0.2 Neut # (Auto) 9.75 H Lymph # (Auto) 1.5 [place] # (Auto) 0.9 Eos # (Auto) 0.1 Baso # (Auto) 0.0 Nucleated RBC % (a uto) 0 Nucleated RBCs # 0.0 PT INR APTT 44.0 H Sodium 138 Potassium 3.0 L Chloride 99 Carbon Dioxide 28 Anion Gap 14.0 BUN 35 H Creatinine 2.0 H GFR Calculation Not Reportable Glucose 116 H Calculated Osmolal ity 295 Calcium 7.7 L Phosphorus 4.0 Magnesium 1.7 Total Bilirubin 0.2 AST 7 ALT < 5 Alkaline Phosphata se 62 Troponin T Baselin e Troponin T 120 Min [place] Delta Troponin T Troponin T Hi Sens 6Hr Troponin T Hi Sens 6Hr Delta NT-Pro-B Natriuret Pep Total Protein 6.1 L Albumin 2.2 L Globulin 3.9 09/08/20 09/08/20 09/08/20 20:08 16:30 16:16 WBC RBC Hgb 10.0 L Hct 31.5 L MCV MCH MCHC RDW Plt Count MPV Neut % (Auto) Lymph % (Auto) [place] % (Auto) Eos % (Auto) Baso % (Auto) Neut # (Auto) Lymph # (Auto) [place] # (Auto) Eos # (Auto) Baso # (Auto) Nucleated RBC % (a uto) Nucleated RBCs # PT INR APTT 32.2 Sodium Potassium Chloride Carbon Dioxide Anion Gap BUN Creatinine GFR Calculation Glucose Calculated Osmolal ity Calcium Phosphorus Magnesium Total Bilirubin AST ALT Alkaline Phosphata se Troponin T Baselin e Troponin T 120 Min [place] Delta Troponin T Troponin T Hi Sens 6Hr 46.01 H Troponin T Hi Sens 6Hr Delta 0.01 NT-Pro-B Natriuret Pep Total Protein Albumin Globulin 09/08/20 09/08/20 09/08/20 14:30 14:30 12:25 WBC RBC Hgb 10.7 L Hct 33.5 L MCV MCH MCHC RDW Plt Count MPV Neut % (Auto) Lymph % (Auto) [place] % (Auto) Eos % (Auto) Baso % (Auto) Neut # (Auto) Lymph # (Auto) [place] # (Auto) Eos # (Auto) Baso # (Auto) Nucleated RBC % (a uto) Nucleated RBCs # PT INR APTT Sodium Potassium Chloride Carbon Dioxide Anion Gap BUN Creatinine GFR Calculation Glucose Calculated Osmolal ity Calcium Phosphorus Magnesium Total Bilirubin AST ALT Alkaline Phosphata se Troponin T Baselin e 46 H Troponin T 120 Min [place] 46.32 H Delta Troponin T 0.32 Troponin T Hi Sens 6Hr Troponin T Hi Sens 6Hr Delta NT-Pro-B Natriuret Pep Total Protein Albumin Globulin Vitals: Last Vital Signs Temp 97.8 F 09/09/20 07:44 Pulse 69 09/09/20 10:01 Resp 18 09/09/20 10:01 BP 110/72 09/09/20 07:44 Pulse Ox 93 09/09/20 10:01 Discharge Plan Discharge Patient Disposition: Xfer SNF Condition: Stable Prescriptions: New tramadol 50 mg Tablet 25 mg PO Q8H PRN (Reason: Moderate Pain) 7 Days Qty: 21 RF: 0 Eliquis 2.5 mg tablet 2.5 mg PO BID 30 Days Qty: 60 RF: 0 Cardizem LA 120 mg tablet extended release 24 hr 60 mg PO Q12H 30 Days Qty: 60 RF: 0 potassium chloride [Klor-Con M20] 20 mEq tablet,ER particles/crystals 20 meq PO DAILY 30 Days Qty: 30 RF: 0 Continued multivitamin Tablet 1 tab PO DAILY@08 RF: 0 magnesium hydroxide [Milk of Magnesia] 400 mg/5 mL Suspension 30 ml PO DAILY PRN (Reason: CONSTSIPATION) RF: 0 bisacodyl 10 mg Suppository 10 mg ND DAILY PRN (Reason: Constipation) RF: 0 Enema Disposable 19-7 gram/118 mL Enema 118 ml ND DAILY PRN (Reason: Constipation) RF: 0 acetaminophen [Tylenol] 325 mg Tablet 650 mg PO Q4H PRN (Reason: Pain) RF: 0 mupirocin 2 % ointment See Rx Instructions .ROUTE .COMPLEX RF: 0 potassium chloride 20 mEq tablet extended release 20 meq PO DAILY@0800 RF: 0 Held furosemide 20 mg tablet 20 mg PO DAILY@07 RF: 0 Hold Instructions: until followup with PCP Discharge Orders: Discharge Order (Routine); Ordered 09/09/20 Ordered By: Polo Layne Other Ambulatory Orders: Basic Metabolic Panel (Routine) Timeframe: 3 Days Facility: [facility] - Location: Lab - Main Lab Ordered By: Polo Layne Complete Blood Count w/Auto (Routine) Timeframe: 1 Week Location: Determined by Patient Ordered By: Polo Layne Referrals: Estrellita Black MD [Physician] - 09/19/20 9:20 am Discharge Diet: Cardiac Discharge Activity: Resume usual activity Activity Restrictions/Additional Instructions: -Requires physical therapy and longterm -Has symptoms related to concussion, please follow-up with neurology -For atrial fibrillation have discharged her on Eliquis, monitor for bleeding, monitor hemoglobin -Repeat CBC in 1 week -Has diastolic CHF, creatinine on discharge 2.0, Lasix will be held until Saturday, recheck creatinine resume if creatinine reasonable -Limit fluid intake to 1500ml to 2 L Discharge Attestations Time Spent in Discharge Care*: greater than 30 min Quality Metrics Clinical Quality Measures During this hospital stay, did patient experience: None Coding Level of Care Code Acute [facility] [place] note Diagnoses Altered mental status R41.82 Fall W19.XXXA Encounter type: initial encounter Contusion of scalp S00.03XA Encounter type: initial encounter Acute kidney injury N17.9 Dementia F03.90 Dementia type: unspecified type Dementia behavioral disturbance: without behavioral disturbance Edema R60.9 Fluid overload E87.70 Diastolic CHF I50.30 NSTEMI (non-ST elevated myocardial infarction) I21.4 Atrial fibrillation with RVR I48.91
--- NOTE | 2020-09-09 10:45 | PC.SOCIAL ---
IMM update Pg. 2 of IMM updated and reviewed with patient's son over the phone. Copy provided to patient as well, who verbalized understanding.
[2020-09-09 12:00] VITALS: BP 115/63; BP 119/73; PULSE 73; PULSE 75; RESP 16; TEMP 36.2; O2SAT 95
[2020-09-09 13:31] LABS: Partial Thromboplastin Time 67.5 SECONDS (23.9-36.7)
--- NOTE | 2020-09-09 14:32 | PC.NURSE ---
report given to mainor at [facility], denies further questions or concerns.
[2020-09-09 15:19] VITALS: BP 115/63; PULSE 73; RESP 16; TEMP 36.2; O2SAT 95
--- NOTE | 2020-09-09 15:59 | PC.NURSE ---
transportation here to [facility] patient via wheelchair, no distress noted.
[2020-09-09 16:00] VITALS: BP 115/63; PULSE 73; RESP 16; TEMP 36.2; O2SAT 95
== END 2020-09-09 16:02 | disposition skilled nursing facility (03) | DRG 88 ==
LOC: ER 15:28 → MEDSURG 18:36
PROVIDERS: Admitting Provider Family Medicine; Emergency Provider Family Medicine; PCP Internal Medicine; Visit Provider Family Medicine
DX: S06.0X0A Concussion without loss of consciousness, initial encounter (principal); I50.31 Acute diastolic (congestive) heart failure; I21.A1 Myocardial infarction type 2; N17.9 Acute kidney failure, unspecified; N39.0 Urinary tract infection, site not specified; W18.30XA Fall on same level, unspecified, initial encounter; S00.03XA Contusion of scalp, initial encounter; F03.90 Unspecified dementia, unspecified severity, without behavioral disturbance, psychotic disturbance, mood disturbance, and anxiety; Z66 Do not resuscitate; I95.1 Orthostatic hypotension; I48.91 Unspecified atrial fibrillation; R07.81 Pleurodynia
CPT/HCPCS: 36415; 36416; 51702; 70450; 71045; 71110; 72125; 72128; 72131; 73521; 73522; 74176; 80053; 81001; 82140; 82550; 82728; 82962; 83735; 83880; 84100; 84443; 84484; 85014; 85018; 85025; 85610; 85730; 87040; 87086; 93005; 93306; 93880; 94640; 94664; 96372; 97116; 97161; 97165; 97530; 99284; 99285; 99291; G0378; J0696; J1630; J1644; J1940; J3480; J3490

== ENCOUNTER 2020-10-20 16:25 | Emergency (ER) | payer MEDICARE, SELFPAY ==
[2020-10-20 16:26] VITALS: BP 132/62; PULSE 63; RESP 14; TEMP 36.1; O2SAT 100; BMI 16.6
--- NOTE | 2020-10-20 17:04 | CTR_ITS ---
PROCEDURE INFORMATION: Exam: CT Cervical Spine Without Contrast Exam date and time: 10/20/2020 5:54 PM Age: 85 years old Clinical indication: Injury or trauma; Fall; Blunt trauma TECHNIQUE: Imaging protocol: Computed tomography images of the cervical spine without contrast. Radiation optimization: All CT scans at this facility use at least one of these dose optimization techniques: automated exposure control; mA and/or kV adjustment per patient size (includes targeted exams where dose is matched to clinical indication); or iterative reconstruction. COMPARISON: CT cervical spin wo con* [id number] 09/04/2020 1:00 PM RADIATION DOSE METRICS: Total DLP (mGy-cm): 278.15 FINDINGS: Vertebrae: No acute fracture. Normal alignment. The cervical spine demonstrates marked degenerative changes at multiple levels. Soft tissues: Unremarkable. Lungs: Lung apices are normal. CT/CT cervical spin wo con* [id number] IMPRESSION: 1. No acute findings. 2. No change from comparison on 09/04/2020. Radiation Dose CTDIVOL = (mGy): DLP = 278.15 (mGy-cm)
--- NOTE | 2020-10-20 17:06 | CTR_ITS ---
PROCEDURE INFORMATION: Exam: CT Head Without Contrast Exam date and time: 10/20/2020 5:54 PM Age: 85 years old Clinical indication: Injury or trauma; Fall; Blunt trauma (contusions or hematomas); Injury details: Lac above left eye; Additional info: Head injury TECHNIQUE: Imaging protocol: Computed tomography of the head without contrast. Radiation optimization: All CT scans at this facility use at least one of these dose optimization techniques: automated exposure control; mA and/or kV adjustment per patient size (includes targeted exams where dose is matched to clinical indication); or iterative reconstruction. COMPARISON: CT head wo con* [id number] 09/08/2020 1:46 PM RADIATION DOSE METRICS: Total DLP (mGy-cm): 1173.75 FINDINGS: Brain: There is moderate cerebral atrophy. No hemorrhage. Unremarkable white matter. No mass effect. Cerebral ventricles: No ventriculomegaly. Bones/joints: Unremarkable. No acute fracture. Paranasal sinuses: Visualized sinuses are unremarkable. No fluid levels. Mastoid air cells: Visualized mastoid air cells are well aerated. Soft tissues: Unremarkable. CT/CT head wo con* [id number] IMPRESSION: No acute intracranial abnormality. Radiation Dose CTDIVOL = (mGy): DLP = 1173.75 (mGy-cm)
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
[2020-10-20] MEDS: tetanus-dipt-pertussis 0.5 mL SDV IM (17:50)
--- NOTE | 2020-10-20 18:49 | PC.NURSE ---
pt report called to Davida JAFFE in SBAR format at [facility].
[2020-10-20 19:02] VITALS: PULSE 84; RESP 17; O2SAT 98
== END 2020-10-20 19:53 | disposition home or self-care (01) ==
PROVIDERS: Emergency Provider Emergency Medicine; PCP Internal Medicine
DX: S01.81XA Laceration without foreign body of other part of head, initial encounter (principal); W19.XXXA Unspecified fall, initial encounter; Z79.01 Long term (current) use of anticoagulants; Z23 Encounter for immunization
CPT/HCPCS: 12011; 70450; 72125; 90471; 90715; 99283

== ENCOUNTER → 2020-10-27 10:32 | Outpatient (BNVA) | payer MEDICARE, SELFPAY | PROVIDERS: PCP Internal Medicine; Referring Provider Family Medicine; Visit Provider Specialist | DX: G31.83 Neurocognitive disorder with Lewy bodies (principal); F02.80 Dementia in other diseases classified elsewhere, unspecified severity, without behavioral disturbance, psychotic disturbance, mood disturbance, and anxiety | CPT/HCPCS: 99204 ==